=== PATIENT | male | born 1955 | race Caucasian/White ===

== ENCOUNTER 2016-07-14 10:40 | Inpatient (IN) | payer MEDICARE, OTHER ==
--- NOTE | ~2016-07-14 | EKG ---
PATIENT: JER HAYES UNIT #: [id number] Ventricular Rate: 66 BPM Atrial Rate: 66 BPM P-R Interval: 172 ms QRS Duration: 82 ms Q-T Interval: 402 ms QTC Calculation(Bezet): 421 ms P [place]: 36 degrees Calculated R [place]: 40 degrees Calculated T [place]: 34 degrees Diagnosis Line: Sinus rhythm with Premature atrial complexes Diagnosis Line: Otherwise normal ECG Diagnosis Line: When compared with ECG of 16-JAN-2016 01:36, Diagnosis Line: Premature atrial complexes are now Present Diagnosis Line: Vent. rate has decreased BY 81 BPM Diagnosis Line: ST no longer depressed in Inferior leads Diagnosis Line: ST no longer depressed in Anterolateral leads Diagnosis Line: Nonspecific T wave abnormality has replaced Diagnosis Line: inverted T waves in Inferior leads Diagnosis Line: Confirmed by LYLA LUGO MD ([id number]) on Diagnosis Line: 07/16/2016 8:45:39 AM INTERPRETING MD: PARISH KNUTSON
--- NOTE | ~2016-07-14 | OR ---
Unit #: [id number] #: [id number] Patient: JER HAYES [id number] [address] [place], [place] [address] [id number] [place] MR#: [id number] NAME: JER HAYES ROOM: [facility] Date of Procedure: 07/16/2016 Admission Date: 07/15/2016 Surgeon: Mirza Maradiaga M.D. : 1955 Attending Physician: Elsie Patterson M.D. Primary Care Physician: Negro Raymond M.D. OPERATIVE REPORT PREOPERATIVE DIAGNOSES Left renal pelvis mass and hydronephrosis. POSTOPERATIVE DIAGNOSES Left renal pelvis mass and hydronephrosis. PROCEDURES PERFORMED Cystoscopy, left retrograde pyelogram, left ureteral washing, left ureteroscopy/stent placement. ANESTHESIA General. FINDINGS No tumor. DESCRIPTION OF PROCEDURE After informed consent, the patient was taken to the operating room, placed under general anesthetic, positioned in lithotomy. His penis and perineum were prepped and draped in the usual sterile fashion. Cystoscopy was performed showing a normal urethra. He had previous TUR, but there was no tumor. The patient did have some slight trabeculation. Retrograde pyelogram was performed after washings were obtained from the left ureter with [place] catheter. They were sent for cytology. The retrograde pyelogram showed a tortuous ureter and dilated the collecting system, but no actual filling defects. Flexible ureteroscopy was performed to access sheath at the UPJ and then the proximal ureter and the collecting system. There was no tumor visible. There was no foreign body visible. I took pictures and repeatedly inspected this region. This is the area that was question on CT scan. The reaction may be inflammatory and not neoplastic. I placed a 5 x 26 stent with the tether removed, had a good coil in the collecting system and the bladder. There was no obvious neoplastic process. We took another washing sample from the collecting system with ureteroscope just to make sure that there was no neoplastic process. He will return to see me next week for stent removal. As I mentioned, I did not leave a tether. Dictated by... Mirza Maradiaga M.D. TLB/modl Unit #: [id number] #: [id number] Patient: JER HAYES TD: 07/17/2016 00:02 JOB #: [id number] OPERATIVE REPORT Page 1 of 1 X Mirza Maradiaga MD PROCEDURE OPERATIVE NOTE
--- NOTE | ~2016-07-14 | HP ---
Unit #: [id number] #: [id number] Patient: JER HAYES [id number] [facility]. [place], [place] [address] [id number] MR#: [id number] NAME: JER HAYES ROOM: Age: 61 Sex: M Admission Date: 07/14/2016 : 1955 Attending Physician: Esteban Zamarripa D.O. Primary Care Physician: Negro Raymond M.D. HISTORY AND PHYSICAL CHIEF COMPLAINT Abdominal pain. HISTORY OF PRESENT ILLNESS The patient is a 61-year-old male with past medical history of possible mass involving the left renal pelvis, diabetes, chronic kidney disease, BPH, seizure disorder, atrial flutter, deafness, who presented to the emergency department for evaluation of the above. History is obtained via full time staff interpreter due to the patient being deaf. The patient has apparently had about a four-day history of abdominal pain. The pain is "everywhere." He describes it as "pain." It has been intermittent in nature. He states that it seems to be worse at night. He has had two to three bouts of nonbloody emesis. He states that he has not had a bowel movement for about four days. He denies any urinary symptoms. In the emergency department, CT of the abdomen and pelvis was done and showed soft tissue thickening in the left renal pelvis, as well as bilateral mild to moderate hydronephrosis and hydroureter. Laboratories notable for findings consistent with urinary tract infection. Also, of note, the patient's glucose is 596, CO2 is 21, anion gap is 15. He was given Rocephin in the emergency department as well as 1 liter of normal saline, 4 mg of Zofran and 4 mg of morphine. He is being admitted to [facility] for evaluation and further treatment. PAST MEDICAL HISTORY 1. Admission to [facility] 01/15 through 01/21/2016 for abdominal pain. He was found to have acute appendicitis and underwent appendectomy. Per the discharge summary, hospital course was complicated by perforated retrocecal appendix with abscess formation. He underwent open drainage of the abscess. Also of note, during that hospital course, the patient was noted to have atrial flutter. He was seen in consultation by Cardiology and was discharged on Lopressor and aspirin. He apparently converted to normal sinus rhythm after adenosine and Cardizem. Additionally, a CT of the abdomen and pelvis showed an irregular soft tissue mass in the left renal pelvis concerning for a transitional cell carcinoma. The patient was seen by Urology. He did not want any surgical intervention during that admission but planned to follow up with Urology as an outpatient. He has not followed up however. 2. Diabetes. 3. Chronic kidney disease with a baseline creatinine of 1.8. 4. BPH. 5. Mass of the left renal pelvis. The patient has not followed up with Unit #: [id number] #: [id number] Patient: ABIGAILJER urology as an outpatient. 6. Remote history of seizures. The patient's last seizure was more than 5 years ago. 7. Hearing impaired. 8. Atrial flutter not on chronic anticoagulation. The patient saw Dr. Sanchez during the last hospital stay. PAST SURGICAL HISTORY 1. Cholecystectomy. 2. Appendectomy. 3. I and D for right thigh abscess. ALLERGIES No known allergies. HOME MEDICATIONS 1. Metoprolol 25 mg b.i.d. 2. Pepcid 20 mg b.i.d. 3. Hydralazine 50 mg q.8 h. 4. Glimepiride 2 mg b.i.d. 5. Aspirin 81 mg daily. 6. Penicillin is also listed. 7. Lantus 20 units b.i.d. 8. Tylenol No. 3, q.4 h. p.r.n. 9. Atorvastatin 10 mg daily. SOCIAL HISTORY The patient lives with his girlfriend. He quit smoking two months ago. There is no alcohol use. He is retired from [employer] but currently is doing yard work. FAMILY HISTORY Notable for coronary artery disease. REVIEW OF SYSTEMS A complete review of systems is negative except as indicated in the HPI. The patient states that his blood sugars have been running high in the 400-500 range. He states that he has been taking his medications as prescribed. PHYSICAL EXAMINATION VITAL SIGNS: Temperature 98.4, pulse 87, respirations 20, blood pressure 164/83, oxygen saturation 93% on room air. GENERAL: The patient is a male who is awake and alert in no acute distress. HEENT: Head is atraumatic. Mucous membranes are dry. NECK: Supple. Trachea is midline. LUNGS: Clear to auscultation bilaterally with no increased work of breathing. HEART: Regular rate and rhythm. ABDOMEN: Soft. He is tender to palpation throughout. Bowel sounds present in all four quadrants. EXTREMITIES: Nontender with no pedal edema. NEUROLOGIC: Patient is awake and alert. He follows commands. PSYCHIATRIC: Mood and affect are normal. Patient is cooperative. SKIN OF EXAMINED AREAS: Warm and dry. DIAGNOSTIC STUDIES Unit #: [id number] #: [id number] Patient: JER HAYES LABORATORY: Complete blood count notable for white blood cell count of 15. Urinalysis shows 2+ leukocyte esterase, 1+ protein, greater than 1000 glucose, 2+ ketones, 3+ blood with 50-100 rbc's, innumerable wbc's. Lactic acid 1.5. Comprehensive metabolic panel notable for sodium 128 that corrects when glucose of 596 is accounted for. Chloride is 92, CO2 is 21, anion gap is 15, BUN 24, creatinine 1.9. Lipase 19, albumin 3.1. IMAGING: CT abdomen and pelvis showed soft tissue thickening in the left renal pelvis concerning for possible transitional cell carcinoma. Bilateral xfgw-sc-wxsbrqdi hydronephrosis and hydroureter are also noted. ASSESSMENT The patient is a 61-year-old male with: 1. Abdominal pain. 2. Urinary tract infection. The patient received Rocephin in the emergency department. Review of urine cultures shows a urine culture from 05/07/2013 that grew greater than 100,000 Klebsiella pneumoniae that was resistant to ampicillin only. 3. Bilateral hydronephrosis/hydroureter. 4. Possible mass involving the left renal pelvis. This was noted on CT of the abdomen and pelvis from 01/16/2016. The patient saw Dr. Maradiaga at that time but has not followed up with him as an outpatient. 5. Uncontrolled diabetes. 6. Chronic kidney disease. The patient's baseline creatinine is around 1.8, it is 1.9 today. He has seen Dr. Quiñones in the past but denies seeing anybody as an outpatient. 7. Benign prostatic hypertrophy. 8. Remote history of seizures. The patient is not on any antiepileptic medication. He states that his last seizure was more than 5 years ago. 9. History of atrial flutter not on chronic anticoagulation. The patient has seen Dr. Sanchez in the past. 10. Former smoker. PLAN 1. Admit for observation to intermediate level. 2. Advance diet to clear liquids as tolerated. 3. Normal saline at 125 mL per hour. 4. P.r.n. morphine. 5. P.r.n. Zofran. 6. Blood cultures x2. 7. Urine culture and sensitivity on urine in the lab. 8. Rocephin 1 gram IV daily pending results of urine culture. 9. Consult Dr. Maradiaga regarding mass of the renal pelvis and hydronephrosis/hydroureter. 10. Strict I's and O's. 11. Hemoglobin A1c. 12. Medium dose sliding scale insulin. 13. Accu-Cheks q.4 h. 14. Repeat BMP later this evening to follow up uncontrolled diabetes. 15. Serial cardiac enzymes. 16. EKG if not done. 17. Repeat labs in the morning. 18. SCDs for DVT prophylaxis. 19. Additional workup and consultants based on above. Unit #: [id number] #: [id number] Patient: JER HAYES Dictated by Julian Soares/tanya TD: 07/14/2016 16:30 JOB #: [id number] HISTORY AND PHYSICAL Page 1 of 1 X Sudha Briscoe MD X HISTORY AND PHYSICAL
--- NOTE | ~2016-07-14 | CO ---
Unit #: [id number] #: [id number] Patient: JER HAYES [id number] [address] [place], [place] [address] [id number] I MR#: [id number] NAME: JER HAYES ROOM: [facility] Age: 61 Sex: M Admission Date: 07/14/2016 : 1955 Attending Physician: Elsie Patterson M.D. Primary Care Physician: Negro Raymond M.D. Consultation Date: 07/15/2016 CONSULTATION REPORT CHIEF COMPLAINT Abdominal pain. HISTORY OF PRESENT ILLNESS The patient is a 61-year-old gentleman seen before by people in my group. Patient has a history of a left collecting system thickening suspicious for neoplasm. Patient did not keep his followup after December 2015 when he was seen, and he underwent appendectomy. Patient here with abdominal pain complaining of constipation. His pain is relatively constant. He complains of some emesis. He has not had a bowel movement for 4 days. His pain has been going on for at least for 4 days and has gotten a little bit worse. Patient denies fever or chills. PAST MEDICAL HISTORY He is deaf. He has had appendectomy. Chronic kidney disease, diabetes. He had atrial flutter in the past, seizure disorder, cholecystectomy, incision and drainage of an abscess on the thigh. ALLERGIES No known drug allergies. HOME MEDICATIONS Lipitor, Tylenol, Lantus, penicillin, aspirin, glimepiride, hydralazine, Pepcid, Metoprolol. SOCIAL HISTORY He used to smoke, but he quit, he said, 2 months ago. FAMILY HISTORY Negative for urology. REVIEW OF SYSTEMS Negative for 10 systems except for some abdominal pain. PHYSICAL EXAMINATION VITAL SIGNS: Vital signs are stable. He is afebrile. GENERAL: He is alert and oriented, in no acute distress. HEENT: Head is atypical. NECK: Neck is supple. LUNGS: Benign. HEART: Benign. ABDOMEN: Soft without rebound or guarding. He is mildly tender throughout. EXTREMITIES: No clubbing, cyanosis or edema. Unit #: [id number] #: [id number] Patient: JER HAYES NEUROLOGIC EXAM: Cranial nerves II-XII are intact. : Patient declined prostate exam. DIAGNOSTIC STUDIES LABS: Creatinine is 1.2. White count 12. Urinalysis - 2+ leukocytes, 3+ blood, negative for bacteria. IMAGING: CT scan shows persistent thickening of the left renal pelvis. ASSESSMENT/PLAN I spoke with the patient in detail through writing about his current situation. He does report having some blood in his urine visibly recently, as well. He denies dysuria. I explained to him the previous CAT scan, and the current CAT scan and the recommendation for ureteroscopy. He consents to ureteroscopy, bilateral retrograde pyelogram, possible bilateral ureteroscopy, washings and biopsies if need be and possible stent placement. Will try to get him on the schedule. Thank you for the chance to participate in his care. Dictated by... Mirza Maradiaga M.D. FLORENCIO/joseph TD: 07/15/2016 16:22 JOB #: [id number] CONSULTATION REPORT Page 1 of 1 X Mirza Maradiaga MD X CONSULTATION REPORT
--- NOTE | ~2016-07-14 | DS ---
Unit #: [id number] #: [id number] Patient: JER HAYES [id number] [address] [place], [place] [address] [id number] I MR#: [id number] NAME: JER HAYES ROOM: [facility] Age: 61 Sex: M Admission Date: 07/14/2016 : 1955 Discharge Date: Attending Physician: Elsie Patterson M.D. Primary Care Physician: Negro Raymond M.D. DISCHARGE SUMMARY DISCHARGE DIAGNOSES 1. Bilateral hydronephrosis with hydroureter. 2. Urinary tract infection with yeast. 3. Abdominal pain secondary to hydronephrosis. 4. No mass in left renal pelvis. 5. Diabetes mellitus type 2, uncontrolled. 6. Chronic kidney disease stage 3. 7. Benign prostatic hypertrophy. 8. History of seizure. Last seizure was 5 years ago. Not on medicine. 9. History of atrial flutter, not on anticoagulation, following Dr. Sanchez. 10. Former smoker. 11. Hearing impaired. CONSULTATION Dr. Maradiaga. PROCEDURES Patient had left cystoscopy, status post stent placed. DIAGNOSTIC TESTING LAB DATA: Glucose 182, sodium 133, potassium 4.3, creatinine 1.4. WBC 13, hemoglobin 13.9, platelets 214. Blood culture - Skin contamination. Urine culture is growing yeast. ALLERGIES None. DISCHARGE MEDICATIONS 1. Lopressor 25 p.o. b.i.d. 2. Lipitor 10 daily. 3. Hydralazine 50 t.i.d. 4. Lantus 20 units subcu b.i.d. 5. Pepcid 20 p.o. b.i.d. 6. Aspirin 81 daily. 7. Tylenol with codeine No. 3 one tablet q.4 p.r.n. pain. 8. Amaryl 2 mg p.o. b.i.d. 9. Keflex 500 p.o. t.i.d. for 5 days. 10. Diflucan 100 mg p.o. daily for 5 days. 11. Lortab 5 mg p.o. t.i.d. p.r.n. pain. HOSPITALIZATION COURSE A 61 year old admitted because of abdominal pain. Unit #: [id number] #: [id number] Patient: ABIGAIL,JER Abdominal pain secondary to bilateral hydronephrosis and hydroureter. Patient seen by Dr. Maradiaga. Patient had cystoscopy and stent placed. Patient will follow Dr. Maradiaga in 1 week's time for stent removal. Urinary tract infection with yeast. Patient received Diflucan. I gave prescription for it. I will give Keflex for a few more days, also. Diabetes mellitus type 2, uncontrolled. Continue with Lantus. Chronic kidney disease stage 3. Stable. I discussed with Dr. Maradiaga. He is okay for the patient to be discharged home. Constipation. I am going to give MiraLAX and Colace before discharge. DISCHARGE PLAN 1. Follow with family physician in 1 week's time. 2. Follow with Dr. Maradiaga in 1 week's time. Dictated by... Julian Zavala/joseph TD: 07/16/2016 14:27 JOB #: [id number] DISCHARGE SUMMARY Page 1 of 1 X Elsie Patterson MD X DISCHARGE SUMMARY
--- NOTE | ~2016-07-14 | CT4 ---
[facility] A Service of [facility] RADIOLOGY TEXT RESULTS PATIENT: JER HAYES LOCATION: [facility] [address] : [birth year] UNIT #: [id number] AGE: [address]: Elsie Patterson MD SEX: M ORDER DR: [id number] [facility] [address] [facility] [address] [facility]. [place], [place] [address] [id number] MR#: [id number] Acc #: [id number] NAME: JER HAYES : 1955 SEX: M STUDY DATE/TIME: 07/14/2016 13:19 UNIT: MARRY ROOM: STUDY DESCRIPTION: CT Abd and Pelv Wo Cont Attending Physician: Esteban Zamarripa D.O. Ordering Physician: Esteban Zamarripa D.O. Primary Care Physician: Negro Raymond M.D. MEDICAL IMAGING REPORT This report is preliminary unless electronic signature is present EXAM CT abdomen and pelvis without contrast Date: 07/14/2016 HISTORY A 61-year-old male with abdominal pain, nausea, vomiting today. Constipation 4 days. Hypertension. Diabetes. Previous cholecystectomy. COMPARISON CT abdomen and pelvis without contrast 01/16/2016. TECHNIQUE This CT exam was performed with one or more of the following radiation dose reduction techniques: automatic exposure control, adjustment of mA and/or kV according to patient size, and iterative reconstruction. PROCEDURE 5 mm noncontrast axial images through the pelvis. Enteric contrast only was administered. FINDINGS Abdomen: There is mild right greater left bilateral hydronephrosis and hydroureter, which has increased since the previous examination. There is no renal or ureteral stone. There is a mildly trabeculated and thickened appearance to the urinary bladder wall slightly greatest on the left, which could indicate changes of neurogenic bladder. Chronic outlet obstruction. Small diverticular outpouching projects from the right lateral margin of the urinary bladder. Abnormal soft tissue thickening is again seen along the left anterior [facility] A Service [facility] RADIOLOGY TEXT RESULTS PATIENT: JER HAYES LOCATION: [facility] [id number] : [birth year] UNIT #: [id number] AGE: [address]: Elsie Patterson MD SEX: M ORDER DR: lower renal pelvic margin measuring 2.3 x 1.8 cm and appears unchanged from previous examination. Soft tissue thickening is again seen to the right of the spine at the T9 vertebral level. On today's study it measures approximately 5.8 cm AP x 2 cm transverse dimension, and appears diminished in thickness since 01/16/2016. As was discussed on previous examination, it is nonspecific but may represent a extramedullary hematopoiesis, particularly given the lack of associated osseous abnormality. Lung bases are clear. Cholecystectomy. Noncontrast appearance of the liver, spleen, pancreas and adrenal glands within normal limits. Surgical clips adjacent to the ascending colon may represent changes of appendectomy. Tiny omental infarct is seen at the lateral margin of the ascending colon measuring 3.7 x 2.1 cm, which likely is related to the previous surgical intervention at this location. The bowel on today's examination appears grossly non-thickened and noninflamed. Pelvis: Urinary bladder and rectum are within normal limits. No acute osseous abnormalities are identified. IMPRESSION 1. Nonobstructive appearing bowel without focal bowel inflammation. 2. Presumed appendectomy with focal omental infarct in the right lower quadrant of the abdomen likely related to previous surgical intervention. 3. Abnormal soft tissue thickening along the anterior margin left renal pelvis is unchanged from prior examination. It could represent area of cortical scarring, although a transitional cell malignancy cannot be excluded. Urologic consultation is recommended if not previously performed. 4. Mild to-moderate bilateral hydronephrosis and hydroureter is again seen without evidence of urinary tract stone or focal lesion. This is nonspecific but may represent changes of chronic reflux or neurogenic bladder. 5. Abnormally thickened urinary bladder wall slightly eccentric to the left of midline with diverticular outpouching to the right of midline. Again, the findings are nonspecific but may represent changes of chronic bladder outlet obstruction or neurogenic bladder. No focal bladder mass lesion is identified on today's study. 6. Cholecystectomy. 7. Abnormal soft tissue thickening to the right of midline adjacent to the spine at the T9 level appears smaller or less thick than on the 2016 examination and may represent changes of extramedullary hematopoiesis. Dictated by... [facility]. [facility] A Service of [facility] RADIOLOGY TEXT RESULTS PATIENT: JER HAYES LOCATION: [place] [address] : [birth year] UNIT #: [id number] AGE: [address]: Elsie Patterson MD SEX: M ORDER DR: Joya Miller M.D. THIS IS AN ELECTRONICALLY VERIFIED REPORT Joya Miller M.D. at 07/17/2016 8:30 AM MAYELIN/mari TD: 07/14/2016 15:11 JOB #: [id number] MEDICAL IMAGING REPORT Page 1 of 1 COPY
[~2016-07-14 10:40] MED LIST: ACETAMINOPHEN PO; ACETAMINOPHEN325 MG PO; ALEVE220 M1 PO; AMARYL2 MG PO; ANEXSIA 7.5/3251 TA1 PO; APAP PO; ASPIRIN EC81 M1 PO; ASPIRIN325 M1 PO; ASPIRIN81 M2 PO; ATRAC-TAIN142 GM EXT; AUGMENTIN875 MG PO; BACTRIM DS TABL1 TA1 PO; BACTROBAN22 GM TP; CARDURA1 MG PO; CLINDAMYCIN HC300 MG PO; COUMADIN; DIABETA5 M1 PO; DICLOFENAC PO; DIFLUCAN100 MG PO; DOXAZOSIN MESYLA1 MG PO; FAMOTIDINE PO; FLEXERIL10 M1 PO; FLOMAX0.4 M1 PO; GAS-X80 MG PO; GLUCOTROL XL PO; GLUCOTROL XL10 MG PO; HUMALOG100 U/ML SUBQ; HYDRALAZINE HCL50 MG PO; K-DUR20 ME1 PO; KERALAC142 G1 TP; KETOCONAZOLE PO; LEVEMIR SUBQ; LEVEMIR100 UNITS/ SUBQ; LODINE; METFORMIN HCL500 M1 PO; METFORMIN PO; METOPROLOL SUCC25 MG PO; METOPROLOL TAR25 MG PO; MYLANTA GAS80 M2 PO; NORVASC PO; NOVOLIN R100 UNITS/; NOVOLOG100 U/ML SUBQ; NOVOLOG100 UNITS/; OMEPRAZOLE20 M2 PO; PAIN RELIEF650 MG PO; PEPCID AC20 M2 PO; PERCOCET5/325 PO; PHENERGAN25 M1 PO; PRILOSEC40 MG PO; RISA-BID CAPLE1 EAC1 PO; SOD BICARBONATE PO; SUPRAX400 MG PO; TYLENOL325 M1 PO; ZESTORETIC 20/11 TAB PO; ZESTRIL10 M1 PO; [UNRECOGNIZED DRUG - OTHER] PO; [UNRECOGNIZED DRUG - OTHER] PO
[2016-07-14 11:54] LABS: URINE SOURCE CLEAN CATCH
[2016-07-14 11:55] LABS: BASOPHIL# 0.1 X10e3 (0-0.3); BASOPHIL% 0.5 % (0-2.5); EOSINOPHIL# 0.1 X10e3 (0-0.7); EOSINOPHIL% 0.5 % (0.0-7.0); HEMATOCRIT 41.9 % (38.0-50.0); HEMOGLOBIN 13.8 gm/dL (13.0-16.0); LYMPHOCYTE% 6.6 % (17.0-45.0); MEAN CELL VOLUME 91.3 FL (83-96); MEAN CORPUSCULAR HGB CONC 32.9 g/dL (30-36); MEAN PLATELET VOLUME 7.9 FL (6.5-11.5); NEUTROPHIL# 12.8 X10e3 (1.5-7.1); NEUTROPHIL% 85.4 % (40-75); PLATELET COUNT 220 X10e3 (140-420)
[2016-07-14 11:59] LABS: DIFF IND NO
[2016-07-14 12:06] LABS: CULTURE INDICATED? YES; URBCS1 AUWI 50-100 /[HPF] (0-2); URINE APPEARANCE TURBID; URINE BACTERIA AUWI NEG (NEGATIVE); URINE BILIRUBIN NEG (NEG); URINE BLOOD 3+ (NEG); URINE COLOR YELLOW; URINE GLUCOSE >1000 MG/DL (NEG); URINE KETONE 2+ (NEG); URINE LEUKOCYTE ESTERASE 2+ (NEG); URINE NITRATE NEG (NEG); URINE PROTEIN 1+ (NEG); URINE SPECIFIC GRAVITY 1.025 (1.003-1.035); URINE SQUAMOUS EPITHELIAL CELL FEW /[HPF]; URINE UROBILINOGEN 0.2 MG/DL (NEG); UWBCS1 AUWI INNUM (0-5)
[2016-07-14 12:35] LABS: ALBUMIN SERUM 3.1 g/dL (3.5-5.0); BILIRUBIN, DIRECT 0.2 mg/dL (0.0-0.2); BILIRUBIN,TOTAL 1.2 mg/dL (0.2-2.0); BUN/CREATININE RATIO 12.63; CALCIUM SERUM 8.8 mg/dL (8.4-10.2); CREATININE SERUM 1.9 mg/dL (0.6-1.4); GLOM FILT RATE Estimated 36.7 mL/min (>60); PROTEIN TOTAL SERUM 7.7 g/dL (6.0-8.3)
[2016-07-14] MEDS ORDERED: PENICILLIN PO (14:49)
[2016-07-14] MEDS ORDERED: LANTUS SOL100 UNIT/1 SUBQ (14:51)
[2016-07-14] MEDS ORDERED: TYLENOL #3 PO (14:52)
[2016-07-14] MEDS ORDERED: ATORVASTATIN CA10 MG PO (14:52)
[2016-07-14 19:14] LABS: BUN/CREATININE RATIO 12.5; CALCIUM SERUM 8.4 mg/dL (8.4-10.2); CREATININE SERUM 1.6 mg/dL (0.6-1.4); GLOM FILT RATE Estimated 45.2 mL/min (>60); POTASSIUM 3.6 mmol/L (3.5-5.1)
[2016-07-15 02:02] LABS: CK TOTAL 29 IU/L (36-174)
[2016-07-15 07:01] LABS: HEMATOCRIT 39.9 % (38.0-50.0); HEMOGLOBIN 13.2 gm/dL (13.0-16.0); MEAN CELL VOLUME 89.8 FL (83-96); MEAN CORPUSCULAR HEMOGLOBIN 29.7 PG (28-34); MEAN PLATELET VOLUME 8.1 FL (6.5-11.5); RED BLOOD COUNT 4.44 X10e (3.90-5.60); RED CELL DISTRIBUTION WIDTH 12.7 % (11.0-15.5)
[2016-07-15 07:51] LABS: ALBUMIN SERUM 2.5 g/dL (3.5-5.0); BILIRUBIN,TOTAL 0.6 mg/dL (0.2-2.0); BUN/CREATININE RATIO 14.16; CALCIUM SERUM 8.1 mg/dL (8.4-10.2); CREATININE SERUM 1.2 mg/dL (0.6-1.4); POTASSIUM 3.4 mmol/L (3.5-5.1)
[2016-07-16 07:58] LABS: HEMATOCRIT 42.1 % (38.0-50.0); HEMOGLOBIN 13.9 gm/dL (13.0-16.0); MEAN CELL VOLUME 90.2 FL (83-96); MEAN CORPUSCULAR HEMOGLOBIN 29.9 PG (28-34); MEAN CORPUSCULAR HGB CONC 33.1 g/dL (30-36); RED BLOOD COUNT 4.67 X10e (3.90-5.60)
[2016-07-16 08:19] LABS: ALBUMIN SERUM 2.6 g/dL (3.5-5.0); BILIRUBIN,TOTAL 0.8 mg/dL (0.2-2.0); BUN/CREATININE RATIO 9.28; CALCIUM SERUM 8.2 mg/dL (8.4-10.2); CREATININE SERUM 1.4 mg/dL (0.6-1.4); GLOM FILT RATE Estimated 53.1 mL/min (>60); POTASSIUM 4.3 mmol/L (3.5-5.1); PROTEIN TOTAL SERUM 6.8 g/dL (6.0-8.3)
[2016-07-16] MEDS ORDERED: KEFLEX500 MG PO (14:56)
[2016-07-16] MEDS ORDERED: DIFLUCAN100 MG PO (14:57)
[2016-07-16] MEDS ORDERED: LORTAB 5-325 M1 EACH PO (14:58)
== END 2016-07-16 17:20 | disposition home or self-care (01) | DRG 694 ==
LOC: CED 10:40 → C5B 15:15 → CED 15:15 → C5B 15:15 → CED 15:40 → C5B 07-15 07:46
PROVIDERS: Emergency Medicine; Family Medicine; Internal Medicine; Urology
PROC: 0T778DZ Dilation of Left Ureter with Intraluminal Device, Via Natural or Artificial Opening Endoscopic (ICD-10-PCS; principal; 2016-07-15)
PROC: 3E1K88X Irrigation of Genitourinary Tract using Irrigating Substance, Via Natural or Artificial Opening Endoscopic, Diagnostic (ICD-10-PCS; 2016-07-16 09:30)
DX: N13.30 Unspecified hydronephrosis (principal); E11.22 Type 2 diabetes mellitus with diabetic chronic kidney disease; E44.0 Moderate protein-calorie malnutrition; E11.65 Type 2 diabetes mellitus with hyperglycemia; N18.3 Chronic kidney disease, stage 3 (moderate); E87.1 Hypo-osmolality and hyponatremia; B37.49 Other urogenital candidiasis; I12.9 Hypertensive chronic kidney disease with stage 1 through stage 4 chronic kidney disease, or unspecified chronic kidney disease; G40.909 Epilepsy, unspecified, not intractable, without status epilepticus; H91.90 Unspecified hearing loss, unspecified ear; Z87.891 Personal history of nicotine dependence; N40.0 Benign prostatic hyperplasia without lower urinary tract symptoms; Z90.49 Acquired absence of other specified parts of digestive tract; E87.6 Hypokalemia; Z79.82 Long term (current) use of aspirin; Z79.4 Long term (current) use of insulin
CPT/HCPCS: 36415; 74176; 80048; 80053; 80076; 81003; 82550; 82947; 83036; 83605; 83690; 84484; 85025; 85027; 87040; 87086; 88108; 93005; 96374; 96375; 99285; C2617; J0696; J1815; J2270; J2405; J3010

== ENCOUNTER 2016-07-18 09:03 | Inpatient (IN) | payer MEDICARE, OTHER ==
--- NOTE | ~2016-07-18 | DS ---
Unit #: [id number] #: [id number] Patient: JER HAYES [id number] [address] [place], [place] [address] [id number] I MR#: [id number] NAME: JER HAYES ROOM: 216 Age: 61 Sex: M Admission Date: 07/26/2016 : 1955 Discharge Date: Attending Physician: Elsie Patterson M.D. Primary Care Physician: Negro Raymond M.D. DISCHARGE SUMMARY DISCHARGE DIAGNOSES 1. Right scrotal abscess, status post incision and drainage. 2. Sepsis. 3. Bilateral groin cellulitis and fungal dermatitis. 4. Chronic kidney disease stage 3. 5. Hypertension. 6. Hyponatremia. 7. Severe protein malnutrition. 8. Hypomagnesemia. 9. Hypokalemia. 10. Acute proctitis. 11. Peritesticular abscess. 12. Acute kidney injury. 13. Left ureteral stent placement. 14. Mild chronic iron-deficiency anemia. 15. History of bilateral hydronephrosis with hydroureter. 16. Benign prostatic hypertrophy. 17. History of remote seizures, last seizure was more than five years ago. 18. Hearing impaired. 19. Atrial fibrillation, not on anticoagulation, following Dr. Sanchez. 20. Diabetes mellitus type 2. CONSULTATIONS 1. Dr. Maradiaga. 2. Dr. Quiñones. 3. Dr. Golden. 4. Dr. Dang. PROCEDURE Patient incision and drainage of right scrotal abscess and left ureteral stent placement. DIAGNOSTIC STUDIES LABORATORY: Glucose 163. WBC 10.2, hemoglobin 12.1, platelets 233,000. Sodium 134, potassium 4, creatinine 1.7, glucose 128, calcium 8.3. Urine culture negative. Culture from the I and D at the scrotal area negative. Blood cultures negative. Initial urine culture on July 18 shows yeast. IMAGING: CT pelvis without contrast shows fluid collection right hemiscrotum area concerning for abscess, mild right hydronephrosis present, left ureteral stent appears in satisfactory position. ALLERGIES Unit #: [id number] #: [id number] Patient: JER HAYES None. DISCHARGE MEDICATIONS 1. Zyvox 600 p.o. b.i.d. 2. Diflucan 100 daily. 3. Lopressor 25 p.o. b.i.d. 4. Lipitor 10 daily. 5. Hydralazine 50 three times daily. 6. Levemir 17 units in the morning. 7. Levemir 14 units subcutaneous at 10 p.m. 8. Pepcid 20 p.o. b.i.d. 9. Aspirin 81 daily. 10. Percocet 5 mg q.4 p.r.n. pain. 11. Augmentin 875 p.o. b.i.d. 12. Dakin's one-fourth strength apply topically three times daily. HOSPITALIZATION COURSE A 61 year old admitted because of scrotal swelling. Scrotal abscess with bilateral groin cellulitis with a fungal dermatitis. Patient is seen by urologist and infectious disease. Patient had I and D. Cultures negative. Patient was started on broad-spectrum antibiotics. Currently, the patient will be discharged on Zyvox and Augmentin. Yeast urinary tract infection: Patient started on Diflucan. Patient will continue with that until August 02, 2016. Left ureteral stent: Status post cysto. Patient will continue following with Dr. Maradiaga and stent removal as an outpatient. Diabetes mellitus type 2: Uncontrolled. Continue with insulin. Hypertension: Uncontrolled, currently stable. Severe protein malnutrition: Continue with high-protein diet. Multiple electrolyte imbalance: Replaced, currently stable. DISPOSITION Patient is supposed to go to rehab for his dressing changes but because of the hearing impairment, he could not get accepted at the rehab. Patient will be discharged home with home health. Discussed with . She is agreeing to do dressing changes at home with the help of [facility]. FOLLOWUP 1. Follow with family physician in one week time. 2. Follow with Dr. Maradiaga in one week time. Discharge time taken is 35 minutes. Dictated by... Julian Zavala/dorothy Unit #: [id number] #: [id number] Patient: JER HAYES TD: 07/31/2016 14:51 JOB #: [id number] DISCHARGE SUMMARY Page 1 of 1 X Elsie Patterson MD X DISCHARGE SUMMARY
--- NOTE | ~2016-07-18 | CT107 ---
[facility] A Service of [facility] & [facility] RADIOLOGY TEXT RESULTS PATIENT: JER HAYES LOCATION: C2A 216- : 53 UNIT #: [id number] AGE: [address]: Elsie Patterson MD SEX: M ORDER DR: [id number] [facility] [address] [facility]. [place], [place] [address] [id number] I MR#: [id number] Acc #: [id number] NAME: JER HAYES : 1955 SEX: M STUDY DATE/TIME: 07/28/2016 18:23 UNIT: C2 ROOM: 216 STUDY DESCRIPTION: CT Pelvis Wo Cont Attending Physician: Elsie Patterson M.D. Ordering Physician: Mirza Maradiaga M.D. Primary Care Physician: Negro Raymond M.D. MEDICAL IMAGING REPORT This report is preliminary unless electronic signature is present EXAM CT pelvis without contrast HISTORY Scrotal cellulitis and pain for 2 weeks. Right lower quadrant pain since yesterday. FINDINGS This CT exam was performed with one or more of the following radiation dose reduction techniques: Automatic exposure control, adjustment of mA and/or kV according to patient size, and iterative reconstruction. CT pelvis was performed without contrast. Partly visualized mild right hydronephrosis has decreased since 07/05/16. Soft tissue mass along the anterior margin of the left renal pelvis is partly visualized and appears similar to the prior CT as well. Left ureteral stent extends to the urinary bladder. No pelvic free fluid. No bowel dilatation. Mild bladder wall thickening could be secondary to bladder wall hypertrophy or cystitis. There is moderate soft tissue stranding and small amount of fluid in the distal right inguinal canal, and a collection of fluid and soft tissue stranding together with several air bubbles in the right hemiscrotum, extending to the right base of the penis, over a AP dimension of 8.8 cm and transverse dimension of 5 cm. This is concerning for an abscess. This appears to lie superior to the right testicle. There is a small collection of relatively high-density material together with an air bubble in the midline scrotum, measuring close to 1 cm. This could be blood or contrast material, or proteinaceous debris. The overall size of the abnormality in the right scrotum is very similar to the prior CT, with increased air bubbles as compared to 07/23/16. IMPRESSION STS. [facility] A Service of [facility] RADIOLOGY TEXT RESULTS PATIENT: JER HAYES LOCATION: [place] [address] : [birth year] UNIT #: [id number] AGE: [address]: Elsie Patterson MD SEX: M ORDER DR: 1. Essentially stable size of the collection of fluid and stranding and small air bubbles within the right hemiscrotum, extending to the distal right inguinal canal, as compared to CT 07/23/16. The air bubbles are more prominent than on the prior study and are likely new. Findings are concerning for an abscess. The right testicle appears to be displaced into the inferior right hemiscrotum. 2. There is a small collection of relatively high-density material in the midline of the mid scrotum, adjacent to an air bubble, and this could be a small amount of blood or contrast material, or other proteinaceous fluid. 3. No intrapelvic free fluid or intrapelvic abscess. 4. Mild right hydronephrosis has decreased compared to 07/23/16. 5. Partly visualized soft tissue mass along the anterior margin of the left renal pelvis appears similar to the prior CT. 6. Left ureteral stent appears in satisfactory position. 7. Mild wall thickening of the urinary bladder could be due to bladder wall hypertrophy or cystitis. Dictated by... Cesar Calderon M.D. THIS IS AN ELECTRONICALLY VERIFIED REPORT Cesar Calderon M.D. at 07/29/2016 11:08 PM DFQuin/wero TD: 07/29/2016 00:19 JOB #: [id number] MEDICAL IMAGING REPORT Page 1 of 1 COPY
--- NOTE | ~2016-07-18 | CO ---
Unit #: [id number] #: [id number] Patient: JER HAYES [id number] [address] [place], [place] [address] [id number] I MR#: [id number] NAME: JER HAYES ROOM: 338 Age: 61 Sex: M Admission Date: 07/18/2016 : 1955 Attending Physician: Elsie Patterson M.D. Primary Care Physician: Negro Raymond M.D. Consultation Date: 07/23/2016 CONSULTATION REPORT REASON FOR CONSULTATION Chronic kidney disease. HISTORY OF PRESENT ILLNESS Mr. Hayes is a 61-year-old male, deaf patient whom we were asked to see for chronic kidney disease. The patient is needing a CT scan with dye to evaluate a scrotal cellulitis versus abscess. All of the history was obtained from the chart and through the patient via the autocad designer who is present. He is having some pain in the groin. We actually saw him about a year ago for chronic kidney disease here in the hospital. In addition to his diabetes, he has had some urologic issues with urinary retention requiring a TURP and he has also had some hydronephrosis on the left side requiring a recent ureteral stent placement. The patient denies any chest discomfort or shortness of breath. No swelling problems. No rashes or itching. The patient had been on some vancomycin but it was switched to Zyvox with his renal issues. PAST MEDICAL HISTORY Significant for diabetes with diabetic bladder, hypertension, GERD, history of pyelonephritis, history of thigh abscess, degenerative joint disease, history of DKA, history of previous acute kidney injury. PAST SURGICAL HISTORY He has had a gallbladder in the past. He has also had an appendectomy. CURRENT MEDICATIONS As follows; normal saline at 150 mL/hour, Lipitor 10 mg at bedtime, metoprolol 25 mg b.i.d., Pepcid 20 mg b.i.d., hydralazine 50 mg t.i.d., baby aspirin daily, MAGnesium-Oxide 400 mg t.i.d., also on Levemir insulin 17 units b.i.d., sliding scale insulin, Zosyn 3.375 g IV q.8 hours, Diflucan 200 mg IV daily, Zyvox 600 mg IV q.12 and p.r.n. ALLERGIES He has no known drug allergies. FAMILY HISTORY Per my old notes, his mother does have some kidney issues, but there is no other deafness in the family. Mother is a diabetic. SOCIAL HISTORY The patient lives with a girlfriend. He is a former smoker. No alcohol or drug abuse. REVIEW OF SYSTEMS Unit #: [id number] #: [id number] Patient: JER HAYES A complete 12-point review of systems was completed with the above findings. In addition, he has not complained of any headache or dizziness. He is hungry. No nosebleed or sore throat. No chest pain or palpitations. No cough or hemoptysis. No nausea or vomiting. No hematuria. No flank pain. No chills. No night sweats or hot flashes. No intolerance to heat or cold. No bleeding issues. Unless otherwise indicated, the review of systems was negative. PHYSICAL EXAMINATION VITAL SIGNS: The patient is afebrile, pulse 60, respiratory rate 18, and blood pressure 143/78. I's and O's are positive by 2.6 L. GENERAL: This is a deaf 61-year-old male, sitting up in bed, talking via the lead cook, upset about not being able to the eat, but in no acute distress. HEENT: Head is atraumatic and normocephalic. Eyes show pink conjunctivae with no scleral icterus. No nasal drainage or nosebleed. Oropharynx is slightly dry. No thrush. NECK: Thick with no JVD. HEART: Regular rate and rhythm with no murmur or rub appreciated. LUNGS: Clear with no wheezing or rhonchi. Breathing is nonlabored. ABDOMEN: Soft, protuberant, nontender, bowel sounds are present. EXTREMITIES: No lower extremity clubbing or pitting edema. SKIN: Dry with some chronic lower extremity stasis changes. GENITOURINARY: The patient does have some apparent yeast type dermatitis as well as some erythema in the scrotal and inguinal area. He is very tender to touch in his genital area. NEUROLOGIC: No gross motor deficits. LYMPHATIC: There is no neck or cervical lymphadenopathy. PSYCHIATRIC: Mood and affect appear normal, but again he is upset about not being able to eat with his pending CT scan. DIAGNOSTIC STUDIES LABORATORY RESULTS: Chemistry today sodium 134, potassium 3.9, bicarb 23, BUN and creatinine were 12 and 1.5 respectively. CBC noteworthy for white count of 12, hemoglobin 12, platelet count 277. Lactic acid level yesterday was 1. Creatinine yesterday was 1.5. Vancomycin trough level on the 07/21/2016 was 19. Blood cultures look like they are negative as was the urine culture except for some yeast. CK level was 19 earlier in the course of the admission. Urinalysis on admission did have red and white blood cells present. Overall it looks like his creatinine is fairly stable as his creatinine has been in the mid to high 1 and even low 2 range over the past several months and last year or so. IMAGING STUDIES: CT from earlier this admission showed some mild right hydronephrosis, which was unchanged. Left kidney was decompressed with stent. ASSESSMENT AND PLAN 1. Chronic kidney disease, stage 3. The patient appears stable and he is off vancomycin at this time. I did talk with the patient via the lead cook about the desire per Surgery and Urology for a CT scan with dye. I did explain that his diet can be harmful on his kidneys, but it is the best way to image his inguinal area and to rule out an abscess. This dye can result in acute kidney injury and even dialysis. The patient understands these issues and is okay to proceed. I will prep him with continued fluids as he has been on fluids since yesterday, so he should be Unit #: [id number] #: [id number] Patient: JER HAYES well hydrated. I do feel we can stop the fluids [address] scan is done and recheck blood work in the morning. 2. Hypertension. The patient's blood pressure is reasonable on his home medications, which will be continued. 3. Hyponatremia. We will correct this issue with normal saline hydration. 4. Scrotal cellulitis, on antibiotics per Infectious Disease. 5. Diabetes. 6. History of urologic issues with recent left hydronephrosis requiring stent. 7. Again, I did discuss all these issues via the lead cook and the patient is agreeable for the CT scan with dye and understands the risks. I would like to thank Dr. Patterson for this consult and the opportunity to participate in evaluation and care of Mr. Hayes. Dictated by... Ryan Quiñones Jr., M.D. SJK/christian TD: 07/23/2016 22:36 JOB #: [id number] CONSULTATION REPORT Page 1 of 1 X Ryan Quiñones MD CONSULTATION REPORT
--- NOTE | ~2016-07-18 | CO ---
Unit #: [id number] #: [id number] Patient: JER HAYES [id number] [address] [place], [place] [address] [id number] MR#: [id number] NAME: JER HAYES ROOM: 338 Age: 61 Sex: M Admission Date: 07/18/2016 : 1955 Attending Physician: Elsie Patterson M.D. Primary Care Physician: Negro Raymond M.D. Consultation Date: 07/22/2016 CONSULTATION REPORT HISTORY AND EXAM Mr. Hayes is a 61-year-old gentleman who we were asked to see because of right scrotal edema, erythema and pain. By history, he underwent a left ureteral stent placement on July 16 due to hydronephrosis. He went home after the procedure and then came back into the hospital on July 18 complaining of right inguinal and scrotal pain. At that time, a CT scan of the abdomen and pelvis showed no right inguinal hernia, no abscess but scrotal edema and inflammation. Followup ultrasound showed good blood flow to both testes and no drainable fluid collection and possible inflammation. The right epididymis could not be evaluated. The patient has been on Zosyn, vancomycin and Diflucan and is being followed by infectious diseases. Urology is also following the patient. The patient is very anxious and frustrated over this situation and is very upset at the time of examination and difficult to examine. We did have a product design specialist present for the evaluation. PAST MEDICAL HISTORY 1. Diabetes. 2. Chronic kidney disease. 3. Benign prostatic hypertrophy. 4. Bilateral ureteral hydronephrosis. 5. Past history of seizures. 6. . 7. Atrial flutter, not anticoagulated. 8. He has had cholecystectomy. 9. Appendectomy. 10. Previous incision and drainage of right thigh abscess. 11. Cystoscopy with ureteral stent placement. FAMILY HISTORY Heart disease. SOCIAL HISTORY He lives with a girlfriend. He has not smokes for two months. Denies the use of alcohol. He is retired from [employer] but still works in [employer]. REVIEW OF SYSTEMS Noncontributory. Denies trauma. MEDICATIONS Home medications include: 1. Metoprolol. 2. Pepcid. 3. Hydralazine. Unit #: [id number] #: [id number] Patient: JER HAYES 4. Amaryl. 5. Aspirin. 6. Lantus. 7. Tylenol. 8. Atorvastatin. 9. Keflex. 10. Diflucan for chronic tinea corporis. 11. Lortab p.r.n. PHYSICAL EXAMINATION VITAL SIGNS: On current examination, temperature is 98.3, pulse 61, respirations 18, blood pressure 137/66. GENERAL: He is awake, alert and oriented. HEENT: Unremarkable. CARDIAC EXAM: Irregular rhythm. LUNGS: Clear. ABDOMEN: Soft. No inguinal adenopathy. In the right inguinal region, he does have scrotal cellulitis extending over the right hemiscrotum into the left and down the shaft of the penis. I cannot palpate a definitive abscess or area of fluctuance as he is exquisitely tender and very difficult to examine. I cannot do a digital examination of the inguinal canal because of the swelling and pain. In the standing position, I cannot appreciate a bulge in the right inguinal canal. RECTAL EXAMINATION: There is no perianal abscess. The cellulitis extends down on the perineal body but I cannot appreciate an abscess and there is no necrosis. EXTREMITIES: No edema. NEUROLOGICAL: Grossly intact. DIAGNOSTIC STUDIES LABORATORY: Chemistries show a creatinine of 1.5, electrolytes otherwise unremarkable except for a serum CO2 of 20, calcium 8.2, magnesium 1.7. His white count today is down to 10.8 from a high of 15.4. Hemoglobin is stable at 12. Urinalysis at the time of admission showed 10-25 white cells and innumerable red cells. He does have a double-J stent in. IMAGING: Ultrasound and CT scan as discussed. ASSESSMENT AND PLAN The patient has cellulitis of the scrotum and penis but, on exam, I cannot assess whether or not there is a drainable collection or an inguinal hernia. However, on CT scan it was definitive that he did not have a right inguinal hernia. Ultrasound shows no evidence of torsion or ischemia to the testes. Even though he is on Zosyn and vancomycin, his pain has not improved, according to him, but his white count has come down to 10.8. Due to the persistence and, according to the patient the worsening of the discomfort, we need to assess him further. I cannot tell whether or not he has developed a drainable correction or could have a pelvic source that is draining down through the inguinal canal into the scrotum. Therefore, I will repeat his CT scan of the abdomen and pelvis with instructions to include the scrotum and inguinal areas. Unit #: [id number] #: [id number] Patient: JER HAYES Dictated by... Morales Golden M.D. RS/df TD: 07/22/2016 11:42 JOB #: [id number] CONSULTATION REPORT Page 1 of 1 X Morales Golden MD X CONSULTATION REPORT
--- NOTE | ~2016-07-18 | CT4 ---
[facility] A Service of [facility] & [facility] RADIOLOGY TEXT RESULTS PATIENT: JER HAYES LOCATION: [place] [id number] : 53 UNIT #: [id number] AGE: [address]: Sudha Briscoe MD SEX: M ORDER DR: [id number] [facility] [address]. [place], [place] [address] [id number] MR#: [id number] Acc #: [id number] NAME: JER HAYES : 1955 SEX: M STUDY DATE/TIME: 07/18/2016 10:36 UNIT: MARRY ROOM: STUDY DESCRIPTION: CT Abd and Pelv Wo Cont Attending Physician: Sharif Blank M.D. Ordering Physician: Sharif Blank M.D. Primary Care Physician: Negro Raymond M.D. MEDICAL IMAGING REPORT This report is preliminary unless electronic signature is present EXAM Abdomen and pelvis CT without contrast. HISTORY Groin swelling for the past 2-3 days, accompanied by pain. COMPARISON 07/14/2016 TECHNIQUE Axial images were obtained without contrast intravenously. Oral contrast is on board from a recent CT from 07/14/2016. This CT exam was performed with one or more of the following radiation dose reduction techniques: automatic exposure control, adjustment of mA and/or kV according to patient size, and iterative reconstruction. FINDINGS The liver, spleen, and pancreas are normal in size. There is mild right hydronephrosis, and the right ureter is dilated all the way down to the bladder. This is unchanged from the previous exam. The bladder wall is thickened and trabeculated. Prostatic enlargement is noted. The left kidney is decompressed with a double-J ureteral stent that appears in satisfactory position. No stones are seen along the course of the stent. There is no evidence of hernia. There is fluid seen along the spermatic cord and inguinal canal on the right that was not present on the previous examination. This extends down into the scrotum. Scrotal wall edema is noted. This was not included on the previous CT scan. No inguinal or pelvic adenopathy is seen. No evidence of bowel obstruction. IMPRESSION There is fluid along the spermatic cord on the right, new since the previous CT scan of 07/14/2016 in its superior aspect. The inferior aspect of this collection was not included on the previous scan. This is [facility] A Service of [facility] RADIOLOGY TEXT RESULTS PATIENT: JER HAYES LOCATION: [facility] [id number] : [birth year] UNIT #: [id number] AGE: [address]: Sudha Briscoe MD SEX: M ORDER DR: accompanied by edematous changes in the right side of the scrotum and diffuse skin thickening in the scrotum consistent with edema. There is no evidence of a right inguinal hernia. No loculated collections are seen to suggest an abscess. A left-sided double-J ureteral stent appears in satisfactory position. Mild right hydronephrosis and right ureterectasis is again seen and unchanged from the previous scan. Dictated by... Morales Gross M.D. THIS IS AN ELECTRONICALLY VERIFIED REPORT Morales Gross M.D. at 07/18/2016 4:28 PM MIRIAM/bella TD: 07/18/2016 12:48 JOB #: [id number] MEDICAL IMAGING REPORT Page 1 of 1 COPY
--- NOTE | ~2016-07-18 | US115 ---
[facility] A Service of [facility] & [facility] RADIOLOGY TEXT RESULTS PATIENT: JER HAYES LOCATION: [facility] 41842-13 : 53 UNIT #: [id number] AGE: [address]: Sudha Briscoe MD SEX: M ORDER DR: [id number] [facility] [address] [place], [place] [address] [id number] MR#: [id number] Acc #: [id number] NAME: JER HAYES : 1955 SEX: M STUDY DATE/TIME: 07/18/2016 10:13 UNIT: MARRY ROOM: STUDY DESCRIPTION: US Scrotum and Contents Attending Physician: Sharif Blank M.D. Ordering Physician: Sharif Blank M.D. Primary Care Physician: eNgro Raymond M.D. MEDICAL IMAGING REPORT This report is preliminary unless electronic signature is present EXAM Testicular ultrasound bilateral 07/18/2016 INDICATIONS Frontal pain on the right greater than left for 2 days. TECHNIQUE Yuen-scale, color Doppler, and spectral analysis of the testicles was performed bilaterally. COMPARISON We have no comparison studies. FINDINGS The right testicle measures 3.1 x 1.8 x 2.0 cm, and the left 4.3 x 2.0 x 3.0 cm. The left testicular echotexture is relatively homogeneous, while the right is heterogeneous, a nonspecific finding. There may be a few microcalcifications in the right testicle within the heterogeneous areas, but there is no well-defined testicular mass with discernible margins or borders. Both testicles demonstrate good flow at the time of the study. There is no hyperemia of either testicle to suggest orchitis. The right epididymis was not well visualized or assessed. The left epididymal head appears unremarkable. There is a trace amount of bayron testicular fluid present bilaterally. The differential considerations for the heterogeneity of the right testicle are broad and would includes sequela of prior bouts of inflammatory or infectious episodes including prior bouts of orchitis. Sequela of prior trauma is a differential consideration. Infiltrative malignancy felt to be less likely. Suggest correlation with patient history. A precautionary followup repeat ultrasound in 4-6 months could be performed to reassess stability of the appearance of the right testicle. [facility] A Service of [facility] RADIOLOGY TEXT RESULTS PATIENT: JER HAYES LOCATION: [facility] [id number] : 53 UNIT #: [id number] AGE: [address]: Sudha Briscoe MD SEX: M ORDER DR: IMPRESSION 1. Both testicles demonstrate good flow at the time of the study. No evidence of orchitis or epididymitis. The right-sided epididymal head and epididymal body, however, were not visualized or assessed. 2. There is heterogeneity of the right testicle compared to the left and the right testicle is also smaller than the left. This is nonspecific and favored to represent sequela of prior inflammatory or infectious episodes, particularly, potentially prior bouts of orchitis or sequela of prior trauma. Infiltrative process, including malignancy, felt to be less likely, given imaging features. Consider a followup ultrasound in 4-6 months for reassessment absent prior studies documenting long-term stability for this patient. Dictated by... Dontrell Tucker M.D. THIS IS AN ELECTRONICALLY VERIFIED REPORT Dontrell Tucker M.D. at 07/18/2016 4:57 PM Adeel TD: 07/18/2016 14:25 JOB #: [id number] MEDICAL IMAGING REPORT Page 1 of 1 COPY
--- NOTE | ~2016-07-18 | EKG ---
PATIENT: JER HAYES UNIT #: [id number] Ventricular Rate: 79 BPM Atrial Rate: 79 BPM P-R Interval: 164 ms QRS Duration: 82 ms Q-T Interval: 376 ms QTC Calculation(Bezet): 431 ms P [place]: 19 degrees Calculated R [place]: 35 degrees Calculated T [place]: 4 degrees Diagnosis Line: Normal sinus rhythm Diagnosis Line: Normal ECG Diagnosis Line: When compared with ECG of 14-JUL-2016 15:53, Diagnosis Line: Premature atrial complexes are no longer Present Diagnosis Line: Inverted T waves have replaced nonspecific T wave Diagnosis Line: abnormality in Inferior leads Diagnosis Line: Confirmed by LYLA LUGO MD ([id number]) on Diagnosis Line: 07/22/2016 3:12:01 PM INTERPRETING MD: PARISH KNUTSON
--- NOTE | ~2016-07-18 | OR ---
Unit #: [id number] #: [id number] Patient: JER HAYES [id number] [address] [place], [place] [address] [id number] I MR#: [id number] NAME: JER HAYES ROOM: [facility] Date of Procedure: 07/24/2016 Admission Date: 07/18/2016 Surgeon: Mirza Maradiaga M.D. : 1955 Attending Physician: Elsie Patterson M.D. Primary Care Physician: Negro Raymond M.D. OPERATIVE REPORT PREOPERATIVE DIAGNOSIS Right scrotal abscess. POSTOPERATIVE DIAGNOSIS Right scrotal abscess. PROCEDURE PERFORMED Incision and drainage of right scrotal abscess. ANESTHESIA General. DESCRIPTION OF PROCEDURE After informed consent, he was taken to the operating room, placed under general anesthetic, positioned supine. His penis and scrotum were prepped and draped in the usual sterile fashion. I reviewed the CT scan, the abscesses in the right hemiscrotum, but it was medial to the testicle. Incision and drainage was performed and the abscess was opened. The fluid which was bloody was drained, but culture was obtained prior to evacuating the fluid. The testicle was left intact. Copious amount of antibiotic irrigation was used. The wound was then packed with a wet-to-dry Kerlix and covered with a dry ABD. He tolerated the procedure well. We will start the t.i.d. dressing changes tomorrow. Dictated by... Julian Neff/christian TD: 07/25/2016 01:36 JOB #: [id number] Unit #: [id number] #: [id number] Patient: JER HAYES OPERATIVE REPORT Page 1 of 1 X Mirza Maradiaga MD X PROCEDURE OPERATIVE NOTE
--- NOTE | ~2016-07-18 | CT2 ---
[facility] A Service of [facility] & [facility] RADIOLOGY TEXT RESULTS PATIENT: JER HAYES LOCATION: [facility] 338-01 : 53 UNIT #: [id number] AGE: [address]: Elsie Patterson MD SEX: M ORDER DR: [id number] [facility] [address] [place], [place] [address] [id number] I MR#: [id number] Acc #: [id number] NAME: JER HAYES : 1955 SEX: M STUDY DATE/TIME: 07/23/2016 17:37 UNIT: [facility] PCU ROOM: [facility] STUDY DESCRIPTION: CT Abd and Pelv W Cont Attending Physician: Elsie Patterson M.D. Ordering Physician: Ryan Quiñones Jr., M.D. Primary Care Physician: Negro Raymond M.D. MEDICAL IMAGING REPORT This report is preliminary unless electronic signature is present EXAM CT abdomen and pelvis with contrast DATE 07/23/2016 HISTORY Scrotal cellulitis for 5 days. Previous cholecystectomy. Chronic kidney disease stage III. Hypertension. Hyponatremia. Recent left hydronephrosis with stent placement. COMPARISON CT abdomen and pelvis without contrast 07/18/2016. PROCEDURE 5 mm axial images from lung bases through the lesser trochanters after intravenous and enteric contrast administration. Sagittal and coronal reformatted images were obtained. This CT exam was performed with one or more of the following radiation dose reduction techniques: Automatic exposure control, adjustment of mA and/or kV according to patient size, and iterative reconstruction. FINDINGS ABDOMEN FINDINGS: There is wwmu-go-rttniwfr bilateral hydronephrosis and hydroureter. Left ureteral stent is in place and appears appropriately positioned. No obstructing ureteral stone is identified on either side. There is bilateral renal cortical thinning and atrophy. A small cyst is thought to be present in the right upper renal pole. There is abnormal soft tissue thickening along the anterior margin of the left renal pelvis measuring nearly 2.3 cm thickness, not thought to be significantly changed. Urothelial malignancy, lymphoma, or simply inflammatory change could all be considered in the appropriate clinical STS. [facility] A Service of [facility] & [facility] RADIOLOGY TEXT RESULTS PATIENT: JER HAYES LOCATION: [facility] 338-01 : [birth year] UNIT #: [id number] AGE: [address]: Elsie Patterson MD SEX: M ORDER DR: context. Lung bases are free of consolidation. There are small left, trace right pleural effusions with mild posterior left basilar atelectasis. Cholecystectomy. Liver, spleen, adrenals within normal limits. Mild pancreatic parenchymal atrophy. The bowel appears grossly nonthickened, nondilated, noninflamed. No pathologic adenopathy is identified. 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 Previously described abnormal soft tissue thickening along the right paravertebral T9 level unchanged from prior, that was documented to be less prominent or smaller than on the 2016 examination, potentially represent changes of extramedullary hematopoiesis. Benign etiology is favored. PELVIS FINDINGS: There is abnormal somewhat irregular enhancing fluid extending along the medial margin of the right scrotal sac, extending superomedial to the testicle. The largest component of this fluid collection, in aggregate, measures 6.2 cm craniocaudal by 4.4 cm AP by 3.9 cm transverse, and may represent evolving phlegmon or abscess. There is abnormal scrotal skin thickening. There is a left inguinal hernia containing only fat. The fluid appears increased in comparison to 07/18/2016 examination. The urinary bladder is thickened and trabeculated with small diverticular outpouching to the right of midline. Mild prostatic enlargement. There is an ill-defined region of low density within the prostate gland to the left of midline, which could represent evolving phlegmon or abscess, measuring 1.6 x 1.6 cm. IMPRESSION 1. Abnormal fluid with enhancement is demonstrated along the medial aspect of the right spermatic cord extending superior and medial to the right testicle. It measures up to 4.4 x 3.9 x 6.2 cm, and is worrisome for evolving phlegmon or abscess. The fluid collection appears increased slightly since the 07/18/2016 examination. Extensive overlying scrotal soft tissue thickening and/or cellulitic changes are noted. 2. There is a 1.6 x 1.6 cm fluid-density focus within the prostate gland to the left of midline, which may represent focal prostatitis. Prostatic abscess not excluded. 3. Onrg-rc-ywpwtubv bilateral hydronephrosis and hydroureter appears stable, and the left ureteral stent appears unchanged. No obstructing ureteral stone is seen. 4. Abnormal soft tissue type thickening along the left anterior renal pelvic margin, unchanged from prior exam. Both benign and malignant etiologies remain in the differential, as described. Bilateral renal cortical thinning and scarring with right renal cyst. [facility] A Service of [facility] RADIOLOGY TEXT RESULTS PATIENT: JER HAYES LOCATION: [facility] 338-01 : [birth year] UNIT #: [id number] AGE: [address]: Elsie Patterson MD SEX: M ORDER DR: 5. Trace left, small right pleural effusions with mild posterior left basilar atelectasis. 6. Appendectomy with probable focal omental infarct in the right lower quadrant of the abdomen, unchanged. 7. Cholecystectomy. Dictated by... Joya Miller M.D. THIS IS AN ELECTRONICALLY VERIFIED REPORT Joya Miller M.D. at 07/24/2016 10:05 AM MAYELIN/wero TD: 07/24/2016 03:46 JOB #: [id number] MEDICAL IMAGING REPORT Page 1 of 1 COPY
--- NOTE | ~2016-07-18 | HP ---
Unit #: [id number] #: [id number] Patient: JER HAYES [id number] [facility] [address] [place], [place] [address] [id number] I MR#: [id number] NAME: JER HAYES ROOM: 19054 Age: 61 Sex: M Admission Date: 07/18/2016 : 1955 Attending Physician: Sudha Briscoe M.D. Primary Care Physician: Negro Raymond M.D. HISTORY AND PHYSICAL CHIEF COMPLAINT Swollen testicles. HISTORY OF PRESENT ILLNESS The patient is a 61-year-old male with a past medical history of diabetes, chronic kidney disease, BPH, seizures and atrial flutter. The patient presented to the emergency department for evaluation of the above. Of note, the patient was hospitalized at [facility] 07/14/2016 through 07/16/2016 for bilateral hydronephrosis with hydroureter. He underwent cystoscopy and stent placement. He was diagnosed with a yeast urinary tract infection and discharged home on Keflex and Diflucan. He states that he has been taking the medications as prescribed. Two days ago the patient developed pain, swelling and redness involving the scrotum. He states that he has had chills, but no documented fever. He denies any chest pain. No cough or cold symptoms. No abdominal pain. In the emergency department a scrotal ultrasound was done and showed no abscess. CT of the abdomen and pelvis showed fluid surrounding the right spermatic cord. Urinalysis showed findings concerning for urinary tract infection. He was given vancomycin and Diflucan in the emergency department. He is being admitted to [facility] for evaluation and further treatment. Of note, history was obtained via tool design engineer due to the patient being deaf. PAST MEDICAL HISTORY 1. Admission to [facility] 07/14/2016 through 04/18/2016 for bilateral hydronephrosis with hydroureter and yeast urinary tract infection. He underwent cystoscopy with stent placement and was discharged home on Keflex and Diflucan. 2. Diabetes. 3. Chronic kidney disease. 4. BPH. 5. Remote history of seizures. The patient's last seizure was more than five years ago. 6. Hearing impaired. 7. Atrial flutter, not on chronic anticoagulation. The patient has seen Dr. Sanchez in the past. PAST SURGICAL HISTORY 1. Cholecystectomy. Unit #: [id number] #: [id number] Patient: JER HAYES 2. Appendectomy. 3. Incision and drainage for right thigh abscess. 4. Cystoscopy with ureteral stent placement. SOCIAL HISTORY The patient lives with his girlfriend. He quit smoking two months ago. There is no alcohol use. 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 FAMILY HISTORY Notable for coronary artery disease. ALLERGIES No known drug allergies. HOME MEDICATIONS 1. Metoprolol 25 mg b.i.d. 2. Pepcid 20 mg b.i.d. 3. Hydralazine 50 mg t.i.d. 4. Amaryl 2 mg b.i.d. 5. Aspirin 81 mg daily. 6. Lantus 20 units subcutaneous b.i.d. 7. Tylenol 3 q.4 h. p.r.n. 8. Atorvastatin 10 mg daily. 9. Keflex 500 mg t.i.d. 10. Diflucan 100 mg daily. 11. Lortab 5/325 mg t.i.d. p.r.n. REVIEW OF SYSTEMS A complete review of systems is negative except as indicated in the history of present illness. PHYSICAL EXAMINATION GENERAL: The patient is a male who is awake and alert, in no acte distress. VITALS: Temperature is 98.5, pulse 87, respiratory rate 18, blood pressure 147/80, oxygen saturation 99% on room air. HEENT: The head is atraumatic. Mucous membranes are moist. NECK: Supple. Trachea midline. LUNGS: Clear to auscultation bilaterally with no increased work of breathing. HEART: Irregular. ABDOMEN: Soft, nontender, with bowel sounds present in all four quadrants. GENITOURINARY: The patient has erythema, warmth, edema and tenderness to palpation involving the scrotal area. EXTREMITIES: Nontender with no pedal edema. NEUROLOGIC: The patient is awake and alert. He follows commands. PSYCHIATRIC: Mood and affect are normal. The patient is cooperative. SKIN: Skin of examined areas demonstrates the previously described abnormalities. DIAGNOSTIC STUDIES IMAGING: Scrotal ultrasound shows no abscess. CT of the abdomen and pelvis shows fluid surrounding the right spermatic cord. Unit #: [id number] #: [id number] Patient: JER HAYES LABORATORY: CMP notable for sodium of 130, chloride 99, CO2 16, glucose 305. Anion gap is 15. BUN 13, creatinine 1.6, alkaline phosphatase 111, albumin 2.8. CBC notable for white blood cell count of 17.4. Urinalysis notable for 3+ leukocyte esterase, 3+ protein, greater than 1000 glucose, 3+ ketones, 3+ blood, innumerable red blood cells and innumerable white blood cells, negative for bacteria, yeast present. Lactic acid is 1.5. ASSESSMENT The patient is a 61-year-old male with 1. Scrotal cellulitis. The patient received vancomycin in the emergency department. 2. Urinary tract infection. The patient has a history of yeast urinary tract infection (culture from 07/14/2016 great yeast). The patient received Diflucan in the emergency department. 3. Sepsis with an initial lactic acid of 1.5. 4. Uncontrolled diabetes with a glucose of 305 on CMP. The patient's hemoglobin A1c was 15.9 on 07/14/2016. 5. Bilateral hydronephrosis/hydroureter, status post cystoscopy and stent placement. 6. Chronic kidney disease. 7. History of seizures. 8. History of atrial flutter, not on chronic anticoagulation. 9. Hearing impaired. 10. Former smoker. PLAN 1. Admit to intermediate level. 2. Healthy heart, consistent carb diet. 3. Blood cultures and sensitivity. 4. Urine culture and sensitivity on urine in the lab. 5. Vancomycin IV and Zosyn IV for scrotal cellulitis, pending further workup. 6. Fluconazole IV for urinary tract infection, due to history of yeast urinary tract infection. 7. Sepsis protocol with repeat lactic acid. 8. One liter normal saline bolus followed by normal saline at 75 cc an hour. 9. Consult Dr. Maradiaga regarding scrotal cellulitis. 10. Low-dose sliding scale with Accu-Cheks. 11. Repeat BMP later this evening to follow up anion gap. 12. EKG and cardiac enzymes. 13. P.r.n. Tylenol. 14. Repeat labs in the morning. 15. SCDs for DVT prophylaxis. 16. Additional workup and consultants based on the above. Dictated by Sudha Briscoe M.D. AW/gz TD: 07/18/2016 14:59 JOB #: [id number] Unit #: [id number] #: [id number] Patient: JER HAYES HISTORY AND PHYSICAL Page 1 of 1 X Sudha Briscoe MD X HISTORY AND PHYSICAL
--- NOTE | ~2016-07-18 | CO ---
Unit #: [id number] #: [id number] Patient: JER HAYES [id number] [place], [place] [address] [id number] I MR#: [id number] NAME: JER HAYES ROOM: 338 Age: 61 Sex: M Admission Date: 07/18/2016 : 1955 Attending Physician: Elsie Patterson M.D. Primary Care Physician: Negro Raymond M.D. Consultation Date: 07/18/2016 CONSULTATION REPORT CHIEF COMPLAINT Swollen scrotum. HISTORY OF PRESENT ILLNESS Mr. Hayes is a gentleman who I saw recently and performed cystoscopy, ureteroscopy, washings, and stent placement. The patient return to the hospital because of swollen and red scrotum. We were consulted for cellulitis. The patient has a double-J stent in place and we were wanting and plan to remove the stent as an outpatient. The patient reports his scrotum became more swollen and more red. Since his discharge, it has been more gradual and then became accelerated over the past day. He had a CT scan and ultrasound. The patient denies any pain with urination. Denies gross hematuria. His scrotum is tender to the touch. It is painful, the pain is moderate, it is rather sharp, very irritating. PAST MEDICAL HISTORY Diabetes, hearing impaired, BPH, chronic kidney disease, seizure disorder, atrial flutter, cholecystectomy, ureteroscopy, stent placement, incision and drainage of right thigh abscess. He has had a previous TURP as well. SOCIAL HISTORY Used to smoke, but he quit. FAMILY HISTORY Noncontributory. ALLERGIES No known drug allergies. MEDICATIONS At home; he was placed on Diflucan. He was taking metoprolol, Pepcid, hydralazine, Amaryl, aspirin, Lantus, Tylenol, Lipitor, Keflex, and Lortab. REVIEW OF SYSTEMS Negative for 10 systems except for scrotal pain and swelling and redness. PHYSICAL EXAMINATION VITAL SIGNS: He is afebrile. Vital signs stable. Temperature was 98.5, pulse 87. HEENT: Head is atraumatic. NECK: Supple. Trachea midline. LUNGS: Benign. HEART: Benign except for irregular heart beat. ABDOMEN: Soft without rebound or guarding. It is nontender. Unit #: [id number] #: [id number] Patient: JER HAYES : Bilaterally descended testicles. He has erythematous scrotum consistent with cellulitis and he has some redundant foreskin. EXTREMITIES: Showed no clubbing, cyanosis, or edema. NEUROLOGIC: He is awake. He follows commands. PSYCHIATRIC: His mood is normal. SKIN: As I mentioned, the scrotum is pretty very red. DIAGNOSTIC STUDIES IMAGING STUDIES: Ultrasound showed no abscess. CT scan showed a fluid around the right spermatic cord. The double-J stent in good position. LABORATORY RESULTS: BUN 13, creatinine 1.6. His white blood cell count is 17.4. Urinalysis is positive leukocytes and positive for yeast. ASSESSMENT Yeast urinary tract infection. The patient was on and is still on Diflucan. Cellulitis, he started on vancomycin and Diflucan. I think the cellulitis may also be partly yeast involved. I will start him on Mycolog topical cream and follow up on urine culture. Eventually, he will undergo cystoscopic stent removal. His urine cytology is still pending. I reviewed these films, labs, as well as his pathology report which I said is still pending. I agree with the antibiotic and antifungal medications. Thank you for the kind referral and follow along with you. Dictated by... Mirza Maradiaga M.D. FLORENCIO/christian TD: 07/19/2016 03:02 JOB #: [id number] CONSULTATION REPORT Page 1 of 1 X Mirza Maradiaga MD X CONSULTATION REPORT
[~2016-07-18 09:03] MED LIST changes: +ATORVASTATIN CA10 MG PO; +KEFLEX500 MG PO; +LANTUS SOL100 UNIT/1 SUBQ; +LORTAB 5-325 M1 EACH PO; +PENICILLIN PO; +TYLENOL #3 PO
[2016-07-18 10:10] LABS: BASOPHIL# 0.1 X10e3 (0-0.3); BASOPHIL% 0.4 % (0-2.5); EOSINOPHIL# 0.1 X10e3 (0-0.7); EOSINOPHIL% 0.4 % (0.0-7.0); HEMATOCRIT 42.7 % (38.0-50.0); HEMOGLOBIN 13.9 gm/dL (13.0-16.0); LYMPHOCYTE# 0.9 X10e3 (1.0-3.5); LYMPHOCYTE% 4.9 % (17.0-45.0); MEAN CELL VOLUME 91.1 FL (83-96); MEAN CORPUSCULAR HEMOGLOBIN 29.6 PG (28-34); MEAN CORPUSCULAR HGB CONC 32.5 g/dL (30-36); MEAN PLATELET VOLUME 7.6 FL (6.5-11.5); MONOCYTE# 1.3 X10e3 (0-1.0); MONOCYTE% 7.7 % (3.0-12.0); NEUTROPHIL# 15.1 X10e3 (1.5-7.1); NEUTROPHIL% 86.6 % (40-75); RED BLOOD COUNT 4.69 X10e (3.90-5.60); RED CELL DISTRIBUTION WIDTH 13.1 % (11.0-15.5); WHITE BLOOD COUNT 17.4 X10e3 (4.0-10.5)
[2016-07-18 10:33] LABS: ALBUMIN SERUM 2.8 g/dL (3.5-5.0); BILIRUBIN, DIRECT 0.2 mg/dL (0.0-0.2); BILIRUBIN,TOTAL 1.2 mg/dL (0.2-2.0); BUN/CREATININE RATIO 8.12; CALCIUM SERUM 8.5 mg/dL (8.4-10.2); CREATININE SERUM 1.6 mg/dL (0.6-1.4); GLOM FILT RATE Estimated 45.2 mL/min (>60); POTASSIUM 4.6 mmol/L (3.5-5.1); PROTEIN TOTAL SERUM 7.2 g/dL (6.0-8.3)
[2016-07-18 10:44] LABS: DIFF IND YES; PLATELET COUNT 199 X10e3 (140-420)
[2016-07-18 10:45] LABS: PLATELET ESTIMATE NORMAL (NORMAL); RBC NORMAL YES
[2016-07-18 11:11] LABS: URINE SOURCE CLEAN CATCH
[2016-07-18 11:26] LABS: CULTURE INDICATED? YES; URBCS1 AUWI INNUM /[HPF] (0-2); URINE APPEARANCE TURBID; URINE BACTERIA AUWI NEG (NEGATIVE); URINE BILIRUBIN NEG (NEG); URINE BLOOD 3+ (NEG); URINE COLOR ORANGE; URINE GLUCOSE >1000 MG/DL (NEG); URINE KETONE 3+ (NEG); URINE LEUKOCYTE ESTERASE 3+ (NEG); URINE NITRATE NEG (NEG); URINE PH 5.5 (5-8); URINE PROTEIN 3+ (NEG); URINE SPECIFIC GRAVITY 1.021 (1.003-1.035); URINE SQUAMOUS EPITHELIAL CELL OCC /[HPF]; URINE UROBILINOGEN 0.2 MG/DL (NEG); UWBCS1 AUWI INNUM (0-5)
[2016-07-18 11:48] LABS: URINE YEAST PRESENT
[2016-07-18] MEDS ORDERED: LIPITOR PO (12:56)
[2016-07-18] MEDS ORDERED: LOPRESSOR PO (12:56)
[2016-07-18 15:50] LABS: CK TOTAL 36 IU/L (36-174)
[2016-07-18 21:29] LABS: CK TOTAL 19 IU/L (36-174)
[2016-07-19 07:00] LABS: BASOPHIL# 0.1 X10e3 (0-0.3); BASOPHIL% 0.5 % (0-2.5); EOSINOPHIL# 0.3 X10e3 (0-0.7); EOSINOPHIL% 1.6 % (0.0-7.0); HEMATOCRIT 36.4 % (38.0-50.0); LYMPHOCYTE# 1.1 X10e3 (1.0-3.5); LYMPHOCYTE% 7.4 % (17.0-45.0); MEAN CELL VOLUME 89.7 FL (83-96); MEAN CORPUSCULAR HEMOGLOBIN 29.4 PG (28-34); MEAN CORPUSCULAR HGB CONC 32.7 g/dL (30-36); MEAN PLATELET VOLUME 7.3 FL (6.5-11.5); MONOCYTE# 1.6 X10e3 (0-1.0); MONOCYTE% 10.2 % (3.0-12.0); NEUTROPHIL# 12.4 X10e3 (1.5-7.1); NEUTROPHIL% 80.3 % (40-75); PLATELET COUNT 200 X10e3 (140-420); RED BLOOD COUNT 4.06 X10e (3.90-5.60); RED CELL DISTRIBUTION WIDTH 12.7 % (11.0-15.5); WHITE BLOOD COUNT 15.4 X10e3 (4.0-10.5)
[2016-07-19 07:03] LABS: DIFF IND NO; HEMOGLOBIN 11.9 gm/dL (13.0-16.0)
[2016-07-19 07:17] LABS: ALBUMIN SERUM 2.1 g/dL (3.5-5.0); BILIRUBIN,TOTAL 0.4 mg/dL (0.2-2.0); BUN/CREATININE RATIO 7.85; CALCIUM SERUM 7.7 mg/dL (8.4-10.2); CREATININE SERUM 1.4 mg/dL (0.6-1.4); GLOM FILT RATE Estimated 53.1 mL/min (>60); POTASSIUM 3.6 mmol/L (3.5-5.1)
[2016-07-20 05:24] LABS: HEMATOCRIT 36.4 % (38.0-50.0); HEMOGLOBIN 11.9 gm/dL (13.0-16.0); MEAN CELL VOLUME 89.8 FL (83-96); MEAN CORPUSCULAR HEMOGLOBIN 29.3 PG (28-34); MEAN CORPUSCULAR HGB CONC 32.6 g/dL (30-36); MEAN PLATELET VOLUME 7.2 FL (6.5-11.5); RED BLOOD COUNT 4.06 X10e (3.90-5.60); RED CELL DISTRIBUTION WIDTH 12.9 % (11.0-15.5); WHITE BLOOD COUNT 14.6 X10e3 (4.0-10.5)
[2016-07-20 06:18] LABS: BILIRUBIN,TOTAL 0.3 mg/dL (0.2-2.0); BUN/CREATININE RATIO 8.57; CALCIUM SERUM 7.9 mg/dL (8.4-10.2); CREATININE SERUM 1.4 mg/dL (0.6-1.4); GLOM FILT RATE Estimated 53.1 mL/min (>60); MAGNESIUM 1.5 mg/dL (1.6-3.0); PHOSPHOROUS 2.5 mg/dL (2.5-4.6); POTASSIUM 3.3 mmol/L (3.5-5.1); PROTEIN TOTAL SERUM 5.7 g/dL (6.0-8.3)
[2016-07-21 07:56] LABS: HEMATOCRIT 37.6 % (38.0-50.0); HEMOGLOBIN 12.1 gm/dL (13.0-16.0); MEAN CELL VOLUME 90.1 FL (83-96); MEAN CORPUSCULAR HGB CONC 32.2 g/dL (30-36); MEAN PLATELET VOLUME 7.2 FL (6.5-11.5); RED BLOOD COUNT 4.18 X10e (3.90-5.60); RED CELL DISTRIBUTION WIDTH 13.1 % (11.0-15.5); WHITE BLOOD COUNT 12.6 X10e3 (4.0-10.5)
[2016-07-21 08:33] LABS: BILIRUBIN,TOTAL 0.8 mg/dL (0.2-2.0); BUN/CREATININE RATIO 7.69; CALCIUM SERUM 8.1 mg/dL (8.4-10.2); CREATININE SERUM 1.3 mg/dL (0.6-1.4); GLOM FILT RATE Estimated 58.1 mL/min (>60); MAGNESIUM 1.7 mg/dL (1.6-3.0); PHOSPHOROUS 3.1 mg/dL (2.5-4.6); POTASSIUM 3.6 mmol/L (3.5-5.1); PROTEIN TOTAL SERUM 5.9 g/dL (6.0-8.3)
[2016-07-22 06:21] LABS: HEMATOCRIT 36.5 % (38.0-50.0); MEAN CELL VOLUME 89.6 FL (83-96); MEAN CORPUSCULAR HEMOGLOBIN 29.5 PG (28-34); MEAN CORPUSCULAR HGB CONC 32.9 g/dL (30-36); MEAN PLATELET VOLUME 6.8 FL (6.5-11.5); RED BLOOD COUNT 4.07 X10e (3.90-5.60); WHITE BLOOD COUNT 10.8 X10e3 (4.0-10.5)
[2016-07-22 06:56] LABS: BUN/CREATININE RATIO 7.33; CALCIUM SERUM 8.2 mg/dL (8.4-10.2); CREATININE SERUM 1.5 mg/dL (0.6-1.4); GLOM FILT RATE Estimated 48.9 mL/min (>60); MAGNESIUM 1.7 mg/dL (1.6-3.0); POTASSIUM 4.1 mmol/L (3.5-5.1)
[2016-07-23 04:27] LABS: HEMATOCRIT 37.5 % (38.0-50.0); HEMOGLOBIN 12.1 gm/dL (13.0-16.0); MEAN CELL VOLUME 90.1 FL (83-96); MEAN CORPUSCULAR HEMOGLOBIN 29.2 PG (28-34); MEAN CORPUSCULAR HGB CONC 32.4 g/dL (30-36); MEAN PLATELET VOLUME 6.9 FL (6.5-11.5); RED BLOOD COUNT 4.16 X10e (3.90-5.60); WHITE BLOOD COUNT 12.2 X10e3 (4.0-10.5)
[2016-07-23 04:50] LABS: CALCIUM SERUM 8.2 mg/dL (8.4-10.2); CREATININE SERUM 1.5 mg/dL (0.6-1.4); GLOM FILT RATE Estimated 48.9 mL/min (>60); POTASSIUM 3.9 mmol/L (3.5-5.1)
[2016-07-24 05:21] LABS: HEMATOCRIT 37.2 % (38.0-50.0); HEMOGLOBIN 12.1 gm/dL (13.0-16.0); MEAN CELL VOLUME 89.8 FL (83-96); MEAN CORPUSCULAR HEMOGLOBIN 29.2 PG (28-34); MEAN CORPUSCULAR HGB CONC 32.6 g/dL (30-36); MEAN PLATELET VOLUME 6.6 FL (6.5-11.5); RED BLOOD COUNT 4.14 X10e (3.90-5.60); RED CELL DISTRIBUTION WIDTH 13.2 % (11.0-15.5); WHITE BLOOD COUNT 11.7 X10e3 (4.0-10.5)
[2016-07-24 06:24] LABS: BUN/CREATININE RATIO 6.42; CALCIUM SERUM 8.1 mg/dL (8.4-10.2); CREATININE SERUM 1.4 mg/dL (0.6-1.4); GLOM FILT RATE Estimated 53.1 mL/min (>60); MAGNESIUM 1.9 mg/dL (1.6-3.0); POTASSIUM 4.2 mmol/L (3.5-5.1)
[2016-07-25 08:52] LABS: HEMATOCRIT 40.6 % (38.0-50.0); MEAN CELL VOLUME 91.1 FL (83-96); MEAN CORPUSCULAR HEMOGLOBIN 29.1 PG (28-34); MEAN CORPUSCULAR HGB CONC 31.9 g/dL (30-36); MEAN PLATELET VOLUME 6.7 FL (6.5-11.5); RED BLOOD COUNT 4.46 X10e (3.90-5.60); RED CELL DISTRIBUTION WIDTH 12.7 % (11.0-15.5)
[2016-07-25 09:28] LABS: CALCIUM SERUM 8.1 mg/dL (8.4-10.2); CREATININE SERUM 1.5 mg/dL (0.6-1.4); GLOM FILT RATE Estimated 48.9 mL/min (>60); POTASSIUM 4.5 mmol/L (3.5-5.1)
[2016-07-26 10:20] LABS: HEMATOCRIT 36.6 % (38.0-50.0); HEMOGLOBIN 11.8 gm/dL (13.0-16.0); MEAN CELL VOLUME 90.8 FL (83-96); MEAN CORPUSCULAR HEMOGLOBIN 29.2 PG (28-34); MEAN CORPUSCULAR HGB CONC 32.2 g/dL (30-36); MEAN PLATELET VOLUME 6.6 FL (6.5-11.5); RED BLOOD COUNT 4.04 X10e (3.90-5.60); RED CELL DISTRIBUTION WIDTH 12.7 % (11.0-15.5); WHITE BLOOD COUNT 12.7 X10e3 (4.0-10.5)
[2016-07-26 10:43] LABS: BUN/CREATININE RATIO 6.25; CALCIUM SERUM 7.8 mg/dL (8.4-10.2); CREATININE SERUM 1.6 mg/dL (0.6-1.4); GLOM FILT RATE Estimated 45.2 mL/min (>60); POTASSIUM 3.9 mmol/L (3.5-5.1)
[2016-07-26 13:06] LABS: URINE SOURCE CLEAN CATCH
[2016-07-26 13:17] LABS: URINE APPEARANCE TURBID; URINE BILIRUBIN NEG (NEG); URINE BLOOD 3+ (NEG); URINE COLOR YELLOW; URINE GLUCOSE NEG (NEG); URINE KETONE NEG (NEG); URINE LEUKOCYTE ESTERASE 3+ (NEG); URINE NITRATE NEG (NEG); URINE PROTEIN 1+ (NEG); URINE SPECIFIC GRAVITY 1.012 (1.003-1.035); URINE UROBILINOGEN 0.2 MG/DL (NEG)
[2016-07-26 13:19] LABS: CULTURE INDICATED? YES; URBCS1 AUWI 100-200 /[HPF] (0-2); URINE BACTERIA AUWI 1+ (NEGATIVE); URINE SQUAMOUS EPITHELIAL CELL OCC /[HPF]; UWBCS1 AUWI INNUM (0-5)
[2016-07-26 13:51] LABS: URINE AMORPHOUS SEDIMENT AMORP PHOSPHATES; URINE YEAST PRESENT
[2016-07-28 05:28] LABS: BASOPHIL# 0.1 X10e3 (0-0.3); BASOPHIL% 0.9 % (0-2.5); EOSINOPHIL# 0.4 X10e3 (0-0.7); EOSINOPHIL% 4.9 % (0.0-7.0); HEMATOCRIT 35.1 % (38.0-50.0); HEMOGLOBIN 11.5 gm/dL (13.0-16.0); LYMPHOCYTE# 1.4 X10e3 (1.0-3.5); LYMPHOCYTE% 15.5 % (17.0-45.0); MEAN CELL VOLUME 89.9 FL (83-96); MEAN CORPUSCULAR HEMOGLOBIN 29.4 PG (28-34); MEAN CORPUSCULAR HGB CONC 32.7 g/dL (30-36); MEAN PLATELET VOLUME 6.3 FL (6.5-11.5); MONOCYTE# 0.9 X10e3 (0-1.0); MONOCYTE% 10.2 % (3.0-12.0); NEUTROPHIL# 6.2 X10e3 (1.5-7.1); NEUTROPHIL% 68.5 % (40-75); PLATELET COUNT 251 X10e3 (140-420); RED CELL DISTRIBUTION WIDTH 13.1 % (11.0-15.5); WHITE BLOOD COUNT 9.1 X10e3 (4.0-10.5)
[2016-07-28 05:32] LABS: DIFF IND NO
[2016-07-28 05:59] LABS: CALCIUM SERUM 8.1 mg/dL (8.4-10.2); CREATININE SERUM 1.8 mg/dL (0.6-1.4); GLOM FILT RATE Estimated 39.2 mL/min (>60); POTASSIUM 3.5 mmol/L (3.5-5.1)
[2016-07-29 05:54] LABS: BUN/CREATININE RATIO 5.55; CALCIUM SERUM 8.2 mg/dL (8.4-10.2); CREATININE SERUM 1.8 mg/dL (0.6-1.4); GLOM FILT RATE Estimated 39.2 mL/min (>60); MAGNESIUM 1.9 mg/dL (1.6-3.0); POTASSIUM 3.5 mmol/L (3.5-5.1)
[2016-07-30 07:48] LABS: BUN/CREATININE RATIO 6.47; CALCIUM SERUM 8.3 mg/dL (8.4-10.2); CREATININE SERUM 1.7 mg/dL (0.6-1.4)
[2016-07-31 05:15] LABS: HEMATOCRIT 37.1 % (38.0-50.0); HEMOGLOBIN 12.1 gm/dL (13.0-16.0); MEAN CELL VOLUME 90.2 FL (83-96); MEAN CORPUSCULAR HEMOGLOBIN 29.3 PG (28-34); MEAN CORPUSCULAR HGB CONC 32.5 g/dL (30-36); MEAN PLATELET VOLUME 6.3 FL (6.5-11.5); RED BLOOD COUNT 4.12 X10e (3.90-5.60); RED CELL DISTRIBUTION WIDTH 13.1 % (11.0-15.5); WHITE BLOOD COUNT 10.2 X10e3 (4.0-10.5)
[2016-07-31] MEDS ORDERED: PERCOCET5/325 PO (18:06)
[2016-07-31] MEDS ORDERED: ZYVOX600 MG PO (18:06)
[2016-07-31] MEDS ORDERED: AUGMENTIN PO (18:07)
[2016-07-31] MEDS ORDERED: DIFLUCAN100 MG PO (18:07)
[2016-07-31] MEDS ORDERED: LEVEMIR100 UNITS/ SUBQ (18:09)
== END 2016-07-31 20:18 | disposition home health service (06) | DRG 853 ==
LOC: CED 09:03 → CEDOF 14:23 → CED 14:23 → C3A PCU 20:02 → CEDOF 20:02 → C3A PCU 07-19 07:03 → C2A 07-26 18:59 → C3A PCU 07-26 18:59 → C2A 07-26 20:04
PROVIDERS: Emergency Medicine; Family Medicine; Internal Medicine; Internal Medicine Nephrology; Urology
PROC: 0V9 Male Reproductive System, Drainage (ICD-10-PCS; principal; 2016-07-24 16:00)
DX: A41.9 Sepsis, unspecified organism (principal); E43 Unspecified severe protein-calorie malnutrition; N17.9 Acute kidney failure, unspecified; E11.22 Type 2 diabetes mellitus with diabetic chronic kidney disease; N18.3 Chronic kidney disease, stage 3 (moderate); I48.91 Unspecified atrial fibrillation; L03.314 Cellulitis of groin; E87.1 Hypo-osmolality and hyponatremia; N13.30 Unspecified hydronephrosis; N39.0 Urinary tract infection, site not specified; E11.65 Type 2 diabetes mellitus with hyperglycemia; N49.2 Inflammatory disorders of scrotum; E83.42 Hypomagnesemia; K62.89 Other specified diseases of anus and rectum; D50.9 Iron deficiency anemia, unspecified; N40.0 Benign prostatic hyperplasia without lower urinary tract symptoms; I12.9 Hypertensive chronic kidney disease with stage 1 through stage 4 chronic kidney disease, or unspecified chronic kidney disease; Z79.82 Long term (current) use of aspirin; H91.90 Unspecified hearing loss, unspecified ear; K21.9 Gastro-esophageal reflux disease without esophagitis; N48.22 Cellulitis of corpus cavernosum and penis; Z87.891 Personal history of nicotine dependence; Z79.4 Long term (current) use of insulin; E87.6 Hypokalemia
CPT/HCPCS: 36415; 72192; 74176; 74177; 76870; 80048; 80053; 80076; 80202; 81003; 82550; 82947; 83036; 83605; 83735; 84100; 84484; 85025; 85027; 87040; 87070; 87075; 87086; 87102; 87106; 87205; 87206; 93005; 96365; 96366; 97163; 99285; G8978-GP; G8979-GP; G8980-GP; J1170; J1450; J1650; J1815; J2020; J2250; J2270; J2543; J2765; J3010; J3370; Q9967

== ENCOUNTER 2016-10-25 12:38 | Inpatient (IN) | payer MEDICARE ==
[~2016-10-25] VITALS: Ht 177.8 cm; Wt 101.8 kg
--- NOTE | ~2016-10-25 | EKG ---
PATIENT: JER HAYES UNIT #: [id number] Ventricular Rate: 59 BPM Atrial Rate: 59 BPM P-R Interval: 186 ms QRS Duration: 80 ms Q-T Interval: 428 ms QTC Calculation(Bezet): 423 ms P [place]: 28 degrees Calculated R [place]: 31 degrees Calculated T [place]: 33 degrees Diagnosis Line: Sinus bradycardia Diagnosis Line: Otherwise normal ECG Diagnosis Line: When compared with ECG of 18-JUL-2016 15:07, Diagnosis Line: T wave inversion no longer evident in Inferior Diagnosis Line: leads Diagnosis Line: Confirmed by ERINN HUSAIN MD ([id number]) on 10/27/2016 Diagnosis Line: 1:59:23 PM INTERPRETING MD: LISHA KNUTSON
--- NOTE | ~2016-10-25 | HP ---
Unit #: [id number] #: [id number] Patient: JER HAYES [id number] [address] [address] [id number] I MR#: [id number] NAME: JER HAYES ROOM: [facility] Age: 61 Sex: M Admission Date: 10/25/2016 : 1955 Attending Physician: Sudha Briscoe M.D. Primary Care Physician: Negro Raymond M.D. HISTORY AND PHYSICAL CHIEF COMPLAINT High sugar. HPI The patient is a 61-year-old male with past medical history of diabetes, chronic kidney disease, hypertension, anemia, BPH, seizures, hearing impaired, atrial fibrillation who presented to the emergency department for evaluation of the above. The patient states that he has had a 1 week history of poorly controlled glucose. He states that he has been taking his medications as prescribed. He denies any nausea or vomiting, no fever. He states that he has had urinary frequency. He has had intermittent chest pain that does not radiate. There are no exacerbating or alleviating factors. In the emergency department, initial glucose was 710 on comprehensive metabolic panel. CO2 was 25. He does not appear to be in DKA. He was given 2 L of normal saline and 10 units of regular insulin. Most recent Accu-Chek is 502. Also of note, the patient has findings concerning for urinary tract infection. He is being admitted to [facility] for evaluation and further treatment. PAST MEDICAL HISTORY 1. Admission to [facility] July 26, 2016, for a right scrotal abscess, status post incision and drainage. He also had sepsis. Wound culture showed no growth after 48 hours. he was discharged home on Augmentin. 2. Diabetes. The patient's hemoglobin A1c was 14.1 on July 28, 2016. 3. Chronic kidney disease, stage 3. The patient's creatinine was 1.7 on July 30, 2016, which appears to be near his baseline. 4. Hypertension. 5. BPH. 6. Remote history of seizures. 7. Hearing impaired. 8. Atrial fibrillation, not on chronic anticoagulation. PAST SURGICAL HISTORY 1. Incision and drainage of scrotal abscess. 2. Cholecystectomy. SOCIAL HISTORY The patient lives with his girlfriend. He is a former smoker. There is no alcohol use. Unit #: [id number] #: [id number] Patient: JER HAYES FAMILY HISTORY Notable for coronary artery disease. ALLERGIES No known allergies. MEDICATIONS Home medications include: 1. Hydrochlorothiazide. 2. Metoprolol. 3. Atorvastatin. 4. Lantus. Home medications will need to be reviewed and verified. REVIEW OF SYSTEMS A complete review of systems is negative except as indicated in the HPI. DIAGNOSTIC TESTS LABORATORY: Complete blood count is essentially normal. Comprehensive metabolic panel notable for sodium of 125 that corrects to 135 when glucose of 710 is accounted for. CO2 is 25. Anion gap is 9. BUN and creatinine 37 and 1.8 respectively. ALT is 7. Alkaline phosphatase 121. Beta hydroxybutyrate is 0.18. Urinalysis notable for 2+ leukocyte esterase, trace protein, greater than 1000 glucose, 1+ blood, 10-25 red blood cells, innumerable white blood cells, 1+ bacteria. Yeast are also present. PHYSICAL EXAM VITAL SIGNS: Temperature is 98.1, pulse 70, respirations 21, blood pressure 142/90. Oxygen saturation 96% on room air. GENERAL: The patient is a male who is awake and alert, in no acute distress. HEENT: The head is atraumatic. Mucous membranes are moist. NECK: Supple. Trachea is midline. CARDIOVASCULAR: Cardiovascular is regular rate and rhythm. LUNGS: Lungs are clear to auscultation bilaterally with no increased work of breathing. ABDOMEN: Abdomen is soft, nontender with bowel sounds present in all four quadrants. EXTREMITIES: Extremities are nontender with no pedal edema. The patient does have hyperpigmentation involving the lower extremities consistent with chronic venous stasis. NEURO: The patient is awake and alert. He follows commands. He is deaf. PSYCH: Mood and affect are normal. The patient is cooperative. SKIN: Skin of examined areas is warm and dry. ASSESSMENT The patient is a 61-year-old male with: 1. Uncontrolled diabetes. The patient's hemoglobin A1c was 14.1 on July 28, 2016. Initial glucose was 710 on comprehensive metabolic panel. He has received 2 L of normal saline as well as 10 units of regular insulin. Most recent Accu-Chek is 502. 2. Urinary tract infection. Review of urine cultures show a urine culture from July 07, 2013, that grew greater than 100,000 Klebsiella that was resistant only to ampicillin. The patient received Rocephin Unit #: [id number] #: [id number] Patient: JER HAYES in the emergency department. 3. Chronic kidney disease. The patient appears to be near his baseline. Creatinine is 1.8 today. 4. Hypertension. 5. Anemia. The patient's hemoglobin is actually 14.8 today. 6. BPH. 7. History of seizures, remote. 8. Hearing impaired. 9. Atrial fibrillation, not on chronic anticoagulation. 10. Former smoker. PLAN 1. Admit to ICU. 2. NPO except ice chips and medications. 3. Non-DKA protocol with insulin drip to start now. 4. Check magnesium level. 5. Blood cultures x2. 6. Urine culture and sensitivity on urine in the lab. 7. Rocephin and fluconazole pending results of urine culture. 8. EKG and cardiac enzymes if not done. 9. P.r.n. Zofran. 10. Repeat labs in the morning including magnesium. 11. SCDs for DVT prophylaxis. 12. Additional workup and consultants based on above. Dictated by Sudha Briscoe M.D. JACLYN/nidia TD: 10/26/2016 08:39 JOB #: [id number] HISTORY AND PHYSICAL Page 1 of 1 X Sudha Briscoe MD HISTORY AND PHYSICAL
--- NOTE | ~2016-10-25 | DS ---
Unit #: [id number] #: [id number] Patient: JER HAYES [id number] [address] [place], [place] [address] [id number] I MR#: [id number] NAME: JER HAYES ROOM: 573 Age: 61 Sex: M Admission Date: 10/25/2016 : 1955 Discharge Date: 10/27/2016 Attending Physician: Sudha Briscoe M.D. Primary Care Physician: Negro Raymond M.D. DISCHARGE SUMMARY FINAL DIAGNOSIS 1. Hyperglycemia. SECONDARY DIAGNOSES 1. Diabetes mellitus type 2. 2. Atrial fibrillation. 3. History of some chronic kidney disease. 4. Benign prostatic hypertrophy. 5. Hypertension. 6. Anemia. 7. Former smoker. CONSULTS None. HOSPITAL COURSE 61-year-old gentleman who basically is deaf. He checked his sugars prior to admission and it was 710. Progressively, his sugars have been in the upward trend. He was advised by his primary care physician to present to the hospital for evaluation. At the hospital he got fluids and was put on non-DKA protocol. History from patient suggests compliance issues. There was no signs and symptoms of infection during this admission. His white count was normal. Hemodialysis and culture did grow less than 30,000 colony-forming units which is really not clinically significant. Other than that the issue here seems to be insulin medication compliance. He admits to checking his blood sugars only twice a day. The plan will be to discharge him home after lunch today. Will have rn field case manager arrange for diabetic education prior to discharge. Will put him on a simple regimen of insulin which is Levemir 20 units subcu b.i.d. He is not on sliding scale at home. Would have him check his sugars 4x a day as well as followup with his primary care provider in the next 2-5 days. Will send him home with home health to ensure medication compliance. He was evaluated, suitable and stable for discharge. MEDICATIONS Medications on discharge would include: 1. Diflucan 200 mg p.o. daily per home dose. 2. Metoprolol XL 50 mg p.o. daily. 3. Lipitor 10 mg p.o. daily. 4. Hydralazine 50 mg p.o. t.i.d. 5. I am not exactly sure he is on Lantus or Levemir. However, I will discharge him home on Levemir 20 units subcu b.i.d. 6. Pepcid 20 mg p.o. b.i.d. per home dose. Unit #: [id number] #: [id number] Patient: JER HAYES 7. Aspirin 81 mg p.o. daily. 8. Percocet 5/325, 1 tablet p.o. q.6 hourly p.r.n. as needed for pain per home dose. 9. Glimepiride 2 mg p.o. b.i.d. We will schedule followup with PCP in the next 2-5 days. Will discharge him home with home health if he is agreeable. Time spent coordinating discharge is about 26 minutes. Dictated by... Julian Cuba TD: 10/27/2016 11:00 JOB #: [id number] DISCHARGE SUMMARY Page 1 of 1 X Sacha Dahl MD X DISCHARGE SUMMARY
--- NOTE | ~2016-10-25 | A ---
[facility] Nutrition Therapy DATE: 10/27/16 Patient: JER HAYES Physician: NOVA Address: [address] [place] [address] Room/Bed: [address] [place] [address], Zip: [place] [address] Admit Date: 10/25/16 Date of : [birth year] Height: 5 10 Weight: 224 101.8 NUTRITIONAL ASSESSMENT: REASON: DM education consult Admitting dx: 61 y/o male admitted with hyperglycemia (non-DKA) PMH: Reviewed Anthropometrics: Ht: 70", Wt: 224 lbs, BMI: 32 (stage I obese) Labs: A1C 13.0, glucose POC 207-250 Meds: Levemirwayne SSI Assessment: Chart reviewed, events noted. RD provided both written and verbal (via translator/interpreter) DM diet education. Patient showed limited understanding and motivation but was compliant and asked questions. Recommendations: 60g carbs per meal diet post-discharge. Diet education given as described above. RD left contact info with patient. Respectfully, Alberta Sanders RD, [facility] [employer] [facility] [employer] cc: client file
--- NOTE | ~2016-10-25 | EKG ---
PATIENT: JER HAYES UNIT #: [id number] Ventricular Rate: 65 BPM Atrial Rate: 65 BPM P-R Interval: 178 ms QRS Duration: 84 ms Q-T Interval: 406 ms QTC Calculation(Bezet): 422 ms P [place]: 41 degrees Calculated R [place]: 54 degrees Calculated T [place]: 35 degrees Diagnosis Line: Normal sinus rhythm Diagnosis Line: Normal ECG Diagnosis Line: When compared with ECG of 25-OCT-2016 16:36, Diagnosis Line: (unconfirmed) Diagnosis Line: No significant change was found Diagnosis Line: Confirmed by ERINN HUSAIN MD ([id number]) on 10/27/2016 Diagnosis Line: 2:04:30 PM INTERPRETING MD: LISHA KNUTSON
[~2016-10-25 12:38] MED LIST changes: +AUGMENTIN PO; +LIPITOR PO; +LOPRESSOR PO; +ZYVOX600 MG PO
[2016-10-25 13:46] LABS: URINE SOURCE CLEAN CATCH
[2016-10-25 13:52] LABS: URINE APPEARANCE CLOUDY; URINE BILIRUBIN NEG (NEG); URINE BLOOD 1+ (NEG); URINE COLOR YELLOW; URINE GLUCOSE >1000 MG/DL (NEG); URINE KETONE NEG (NEG); URINE LEUKOCYTE ESTERASE 2+ (NEG); URINE NITRATE NEG (NEG); URINE PROTEIN TRACE (NEG); URINE SPECIFIC GRAVITY 1.025 (1.003-1.035); URINE UROBILINOGEN 0.2 MG/DL (NEG)
[2016-10-25 13:55] LABS: CULTURE INDICATED? YES; URINE SQUAMOUS EPITHELIAL CELL NONE SEEN /[HPF]; UWBCS1 AUWI INNUM (0-5)
[2016-10-25 14:13] LABS: URINE BACTERIA AUWI 1+ (NEGATIVE); URINE YEAST PRESENT
[2016-10-25 14:21] LABS: BASOPHIL# 0.1 X10e3 (0-0.3); BASOPHIL% 0.9 % (0-2.5); EOSINOPHIL# 0.2 X10e3 (0-0.7); EOSINOPHIL% 2.5 % (0.0-7.0); HEMATOCRIT 44.4 % (38.0-50.0); HEMOGLOBIN 14.8 gm/dL (13.0-16.0); LYMPHOCYTE# 1.4 X10e3 (1.0-3.5); LYMPHOCYTE% 17.5 % (17.0-45.0); MEAN CELL VOLUME 88.6 FL (83-96); MEAN CORPUSCULAR HEMOGLOBIN 29.6 PG (28-34); MEAN CORPUSCULAR HGB CONC 33.4 g/dL (30-36); MEAN PLATELET VOLUME 8.4 FL (6.5-11.5); MONOCYTE# 0.8 X10e3 (0-1.0); MONOCYTE% 9.7 % (3.0-12.0); NEUTROPHIL# 5.4 X10e3 (1.5-7.1); NEUTROPHIL% 69.4 % (40-75); PLATELET COUNT 171 X10e3 (140-420); RED BLOOD COUNT 5.01 X10e (3.90-5.60); RED CELL DISTRIBUTION WIDTH 13.7 % (11.0-15.5); WHITE BLOOD COUNT 7.8 X10e3 (4.0-10.5)
[2016-10-25 14:22] LABS: DIFF IND NO
[2016-10-25 14:45] LABS: ALBUMIN SERUM 3.5 g/dL (3.5-5.0); BETA HYDROXYBUTYRATE 0.18 MMOL/L (0.02-0.27); BILIRUBIN, DIRECT 0.1 mg/dL (0.0-0.2); BILIRUBIN,INDIRECT 0.2 mg/dL (0.0-0.9); BILIRUBIN,TOTAL 0.3 mg/dL (0.2-2.0); BUN/CREATININE RATIO 20.55; CALCIUM SERUM 8.9 mg/dL (8.4-10.2); CREATININE SERUM 1.8 mg/dL (0.6-1.4); GLOM FILT RATE Estimated 39.2 mL/min (>60); PROTEIN TOTAL SERUM 7.9 g/dL (6.0-8.3)
[2016-10-25 16:45] LABS: MAGNESIUM 1.8 mg/dL (1.6-3.0)
[2016-10-25 17:09] LABS: POC - CKMB 1.3 ng/mL (0.0-7.9); POC - TROPONIN <0.05 ng/mL (<=0.05)
[2016-10-25 20:55] LABS: CK TOTAL 40 IU/L (36-174)
[2016-10-26 03:00] LABS: BASOPHIL# 0.1 X10e3 (0-0.3); EOSINOPHIL# 0.3 X10e3 (0-0.7); EOSINOPHIL% 3.9 % (0.0-7.0); HEMATOCRIT 37.9 % (38.0-50.0); HEMOGLOBIN 12.9 gm/dL (13.0-16.0); LYMPHOCYTE# 2.4 X10e3 (1.0-3.5); LYMPHOCYTE% 29.8 % (17.0-45.0); MEAN CORPUSCULAR HEMOGLOBIN 29.6 PG (28-34); MEAN CORPUSCULAR HGB CONC 34.1 g/dL (30-36); MEAN PLATELET VOLUME 7.9 FL (6.5-11.5); MONOCYTE# 0.8 X10e3 (0-1.0); MONOCYTE% 10.1 % (3.0-12.0); NEUTROPHIL# 4.4 X10e3 (1.5-7.1); NEUTROPHIL% 55.2 % (40-75); PLATELET COUNT 183 X10e3 (140-420); RED BLOOD COUNT 4.35 X10e (3.90-5.60); RED CELL DISTRIBUTION WIDTH 13.9 % (11.0-15.5); WHITE BLOOD COUNT 7.9 X10e3 (4.0-10.5)
[2016-10-26 03:01] LABS: DIFF IND NO
[2016-10-26 03:21] LABS: CK TOTAL 36 IU/L (36-174)
[2016-10-26 03:30] LABS: ALBUMIN SERUM 2.8 g/dL (3.5-5.0); BILIRUBIN,TOTAL 0.8 mg/dL (0.2-2.0); BUN/CREATININE RATIO 16.66; CALCIUM SERUM 8.1 mg/dL (8.4-10.2); CREATININE SERUM 1.5 mg/dL (0.6-1.4); GLOM FILT RATE Estimated 48.9 mL/min (>60); MAGNESIUM 1.5 mg/dL (1.6-3.0); PROTEIN TOTAL SERUM 6.5 g/dL (6.0-8.3)
[2016-10-26 03:31] LABS: POTASSIUM 3.4 mmol/L (3.5-5.1)
[2016-10-27 07:46] LABS: BUN/CREATININE RATIO 15.38; CALCIUM SERUM 8.5 mg/dL (8.4-10.2); CREATININE SERUM 1.3 mg/dL (0.6-1.4); GLOM FILT RATE Estimated 58.1 mL/min (>60); POTASSIUM 4.2 mmol/L (3.5-5.1)
[2016-10-27] MEDS ORDERED: LEVEMIR100 UNITS/ SUBQ (08:27)
[2016-10-27] MEDS ORDERED: METOPROLOL SUCC50 MG PO (14:24)
== END 2016-10-27 15:11 | disposition home or self-care (01) | DRG 638 ==
LOC: CED 12:38 → CEDOF 16:00 → CED 16:26 → CICCU3 17:30 → CEDOF 17:30 → C5C 10-26 14:59
PROVIDERS: Emergency Medicine; Family Medicine
DX: E11.65 Type 2 diabetes mellitus with hyperglycemia (principal); N39.0 Urinary tract infection, site not specified; I48.91 Unspecified atrial fibrillation; I12.9 Hypertensive chronic kidney disease with stage 1 through stage 4 chronic kidney disease, or unspecified chronic kidney disease; Z79.4 Long term (current) use of insulin; N18.9 Chronic kidney disease, unspecified; N40.0 Benign prostatic hyperplasia without lower urinary tract symptoms; D64.9 Anemia, unspecified; Z87.891 Personal history of nicotine dependence; H91.90 Unspecified hearing loss, unspecified ear; Z90.49 Acquired absence of other specified parts of digestive tract; Z82.49 Family history of ischemic heart disease and other diseases of the circulatory system
CPT/HCPCS: 36415; 80048; 80053; 80061; 80076; 81003; 82010; 82550; 82553; 82947; 83036; 83735; 84484; 85025; 87040; 87086; 93005; 96360; 96361; 99285; J0696; J1815

== ENCOUNTER → 2016-11-05 | Outpatient (CLI) | payer MEDICARE ==
[~2016-11-05] MED LIST changes: +METOPROLOL SUCC50 MG PO
--- NOTE | ~2016-11-05 | US77 ---
[facility] A Service of [facility] RADIOLOGY TEXT RESULTS PATIENT: JER HAYES LOCATION: [facility] : [birth year] UNIT #: [id number] AGE: [address]: Mirza Maradiaga MD SEX: M ORDER DR: [id number] [facility] [address] [facility] [place], [place] [address] [id number] MR#: [id number] Acc #: [id number] NAME: JER HAYES : 1955 SEX: M STUDY DATE/TIME: 11/05/2016 14:13 UNIT: US ROOM: STUDY DESCRIPTION: US Kidney Bilateral Complete Attending Physician: Mirza Maradiaga M.D. Referring Physician: Mirza Maradiaga M.D. Ordering Physician: Mirza Maradiaga M.D. Primary Care Physician: Negro Raymond M.D. MEDICAL IMAGING REPORT This report is preliminary unless electronic signature is present EXAM Renal ultrasound INDICATION Follow up hydronephrosis. PROCEDURE Yuen-scale and Doppler imaging of the kidneys and bladder. COMPARISON 05/07/2015 FINDINGS Right kidney measures 12.9 cm. There is very mild right hydronephrosis. Posterior bladder wall thickening. Left kidney measures 12.1 cm in length. Suspicion for mild hydronephrosis. IMPRESSION 1. Mild bilateral hydronephrosis. Significantly improved compared to the previous ultrasound. 2. Nonspecific thickening along the posterior bladder wall could represent trabeculation or changes of chronic outlet obstruction. Correlate with clinical suspicion. Dictated by... Carlos Gomes M.D. THIS IS AN ELECTRONICALLY VERIFIED REPORT Carlos Gomes M.D. at 11/07/2016 12:12 PM EED/aston TD: 11/06/2016 08:31 [facility] A Service of [facility] RADIOLOGY TEXT RESULTS PATIENT: JER HAYES LOCATION: [facility] : 51 UNIT #: [id number] AGE: [address]: Mirza Maradiaga MD SEX: M ORDER DR: JOB #: [id number] MEDICAL IMAGING REPORT Page 1 of 1 COPY
== END | disposition home or self-care (01) ==
LOC: CGUS 13:17
DX: N13.30 Unspecified hydronephrosis (principal); N32.89 Other specified disorders of bladder
CPT/HCPCS: 76770